=== PATIENT | female | born 1935 | race Caucasian/White ===

== ENCOUNTER 2016-08-17 14:17 | Emergency (ER) | payer OTHER, MEDICARE ==
[~2016-08-17] VITALS: Ht 147.3 cm; Wt 88.5 kg
[~2016-08-17 14:17] MED LIST: ACCUNEB SO1.25 MG/1; ACETAMINOPHEN325 M1 PO; ADVIL200 M2 PO; ALEVE220 MG PO; AMBIEN 10 MG TA10 MG PO; AMBIEN 5 MG TABL5 M1 PO; AUGMENTIN 875875 M1 PO; AUGMENTIN 875875 MG PO; AZITHROMYCIN 2250 MG PO; BACTROBAN NASAL1 GM NASAL; BENADRYL; BENTYL 10 MG CA10 M1 PO; CALCIUM PO; CEFTIN 250 MG250 MG PO; CEFTIN500 MG PO; CENTRUM SILVER1 EAC1 PO; CEPHALEXIN 500500 M2 PO; CIPRO250 M1 PO; CIPRO500 MG PO; CIPROFLOXACIN250 M2 PO; CIPROFLOXACIN500 M1 PO; COLACE100 MG PO; COMPAZINE10 MG PO; CYPROHEPTADINE 44 MG PO; DARVOCET-N 1001 EACH PO; ENOXAPARIN40 MG/0.1 INJECTION; ENOXAPARIN40 MG/0.1 SUBQ; ESTRACE0.5 MG PO; ESTRODIL PO; FERRO-TIME325 MG PO; FLAGYL500 MG PO; FUROSEMIDE 20 M20 MG PO; HYDROCHLOROTHIA25 M2 PO; HYDROCODONE-AP1 EAC6 PO; HYDROXYCHLOROQ200 M1 PO; KCL PO; KEFLEX500 MG PO; KEFLEX750 MG PO; LOMOTIL TABLET1 EACH PO; LOPERAMIDE 2 MG2 M1 PO; LOVASTATIN PO; LYRICA PO; LYRICA200 MG PO; MACROBID 100 M100 M1 PO; MULTIVITAMINS1 EAC7 PO; NAPROSYN500 MG PO; NITROFURANTOIN100 MG PO; NORCO 5-325 TA1 EACH; NORCO 5-325 TA1 EACH PO; NYSTATIN 1100000 U/M PO; NYSTATIN15 GM TOP; OMEPRAZOLE20 MG PO; PERCOCET 5-3251 EACH PO; PHENAZOPYRIDIN200 M2 PO; PHENERGAN 25 MG25 M1 PO; POTASSIUM CHLO10 ME1 PO; PREMARIN0.45 MG PO; PREVALITE PACKE1 PKT PO; PRILOSEC 20 MG20 MG PO; PRILOSEC40 MG PO; PROBIOTIC DIGE1 EACH PO; PROLOPRIM100 MG PO; PROMS25 WY RECTAL; PROTONIX40 M2 PO; PYRIDIUM200 MG PO; RAPAFLO4 MG PO; REGLAN 10 MG TA10 MG PO; REMERON15 MG PO; ROBAXIN 750 MG750 M1 PO; ROXICODONE5 MG PO; SKELAXIN 800 M800 M1 PO; TAGAMENT; TRAMADOL 50 MG50 MG PO; TYLENOL325 MG PO; VANCOMYCIN100 MG/ML PO; VENTOLIN HFA 1818 GM INH; VOLTAREN GEL 1100 G1 TOP; VOLTAREN GEL 1100 G2 TOP; XANAX 0.25 MG0.25 MG; XANAX 0.25 MG0.25 MG PO; XANAX 0.5 MG0.5 M1 PO; XANAX 0.5 MG0.5 MG PO; XIFAXAN550 M1 PO; ZOCOR40 MG PO; ZOFRAN ODT4 MG PO; ZOFRAN4 MG PO; ZOLOFT 50 MG TA50 M1 PO; ZOLOFT100 MG PO; [UNRECOGNIZED DRUG - CODE] PO; [UNRECOGNIZED DRUG - OTHER] PO
[2016-08-17 14:43] LABS: HEMATOCRIT 38.4 % (37.0-47.0); HEMOGLOBIN 12.9 gm/dL (12.0-15.0); MCH 29.6 pg (26.0-34.0); MCHC 33.4 g/dL (28.0-37.0); MCV 88.6 fL (80.0-100.0); PLATELET COUNT 188 thou/uL (150-400); RBC 4.34 mil/uL (4.20-5.00); RDW 15.8 % (10.5-14.5); WBC 3.4 thou/uL (4.0-11.0)
[2016-08-17 14:47] LABS: MANUAL DIFF YES
[2016-08-17 14:53] LABS: ANION GAP 14 mmol/L (7-16); BUN 12 mg/dL (7-18); CALCIUM 8.7 mg/dL (8.5-10.1); CHLORIDE 100 mmol/L (98-107); CO2 19 mmol/L (21-32); CREATININE 0.7 mg/dL (0.6-1.0); GLUCOSE 103 mg/dL (74-106); POTASSIUM 4.1 mmol/L (3.5-5.1); SODIUM 133 mmol/L (136-145)
[2016-08-17 15:00] LABS: ALBUMIN 3.6 g/dL (3.4-5.0); ALKALINE PHOSPHATASE 120 U/L (46-116); DIRECT BILIRUBIN < 0.1 mg/dL (<0.1-0.3); SGOT 32 U/L (15-37); SGPT 23 U/L (30-65); TOTAL BILIRUBIN 0.3 mg/dL (<0.1-1.0); TOTAL PROTEIN 7.4 g/dL (6.4-8.2)
[2016-08-17 15:07] LABS: ABSOLUTE NEUTROPHILS 1.9 thou/uL (1.4-8.2); TOTAL CELL COUNT 100
[2016-08-17 15:46] LABS: URINE BILIRUBIN ND (Negative); URINE BLOOD ND (Negative); URINE COLOR ORANGE; URINE GLUCOSE-RANDOM* ND (Negative); URINE KETONES ND (Negative); URINE NITRITE ND (Negative); URINE PROTEIN (DIPSTICK) ND (Negative); URINE SPECIFIC GRAVITY ND (1.003-1.035); URINE UROBILINOGEN ND E.U./dl (0.2-1.0)
[2016-08-17 15:54] LABS: SQUAMOUS 4-10 Moderate /LPF (0-3); WBC CLUMPS Rare (None Seen)
[2016-08-17 15:55] LABS: URINE RBC 0-2 Rare /HPF (0-2); URINE WBC >25 Many /HPF (0-5)
[2016-08-17 15:56] LABS: CASTS None Seen /LPF (None Seen); CRYSTALS None Seen /LPF (None Seen)
[2016-08-17] MEDS ORDERED: ZOFRAN ODT4 MG PO (16:07)
[2016-08-17] MEDS ORDERED: MACROBID 100 M100 M1 PO (16:07)
[2016-08-17 17:05] VITALS: BP 144/62
== END 2016-08-17 17:14 | disposition home or self-care (01) ==
LOC: ER 14:17
PROVIDERS: Emergency Medicine
DX: N39.0 Urinary tract infection, site not specified (principal); R11.2 Nausea with vomiting, unspecified; R19.7 Diarrhea, unspecified; M06.9 Rheumatoid arthritis, unspecified; F32.9 Major depressive disorder, single episode, unspecified; M79.7 Fibromyalgia; G89.29 Other chronic pain; M54.9 Dorsalgia, unspecified; G62.9 Polyneuropathy, unspecified; G72.81 Critical illness myopathy; Z90.89 Acquired absence of other organs; Z90.49 Acquired absence of other specified parts of digestive tract; Z90.710 Acquired absence of both cervix and uterus; Z86.2 Personal history of diseases of the blood and blood-forming organs and certain disorders involving the immune mechanism; Z86.14 Personal history of Methicillin resistant Staphylococcus aureus infection; Z88.6 Allergy status to analgesic agent; Z88.5 Allergy status to narcotic agent; Z88.2 Allergy status to sulfonamides; Z91.018 Allergy to other foods

== ENCOUNTER 2016-09-30 13:37 | Inpatient (IN) | payer OTHER, MEDICARE ==
[~2016-09-30] VITALS: Ht 147.3 cm; Wt 74.8 kg
--- NOTE | ~2016-09-30 | EKG ---
[address] [address] ELECTROCARDIOGRAM REPORT Name: DALE DAO Room #: 439-P [facility]..#: [id number] Admission: 09/30/16 Attend Phys: Kai Vick DO Discharge: Date of : 35 Report #: [id number] THIS REPORT FOR: //name// [facility] ED Test Date: 2016-09-30 Test Time: 16:05:30 Pat Name: DALE DAO Department: Room: [facility] Gender: F Vb Developer: conor : 1935 Requested By: Earl Abraham Order Number: [id number] MD: Jon Summers Measurements Intervals [place] Rate: 77 P: -25 AK: 264 QRS: -62 QRSD: 134 T: 22 QT: 426 QTc: 483 Interpretive Statements Sinus rhythm Prolonged AK interval Consider left atrial enlargement Right bundle branch block Left ventricular hypertrophy Inferior infarct, old Compared to ECG 05/20/2016 09:46:17 First degree AV block now present Left ventricular hypertrophy now present Supraventricular tachycardia no longer present Myocardial infarct finding still present Electronically Signed On 09-30-2016 22:06:39 CDT by Jon Summers [email or web address] <ELECTRONICALLY SIGNED> By: Jon Summers MD 09/30/16 2206 04 04 Jon Summers MD /EPI
[~2016-09-30 13:37] MED LIST changes: +ZOFRAN ODT8 MG PO
[2016-09-30 14:13] VITALS: BP 145/79
[2016-09-30 16:33] LABS: ABSOLUTE NEUTROPHILS 4.5 thou/uL (1.4-8.2); BASOPHILS 0.3 % (0.0-2.0); EOSINOPHILS 1.7 % (0.0-3.0); HEMATOCRIT 44.1 % (37.0-47.0); HEMOGLOBIN 14.9 gm/dL (12.0-15.0); LYMPHOCYTES 20.8 % (24.0-44.0); MCH 30.3 pg (26.0-34.0); MCHC 33.7 g/dL (28.0-37.0); MONOCYTES 11.4 % (1.0-8.0); PLATELET COUNT 314 thou/uL (150-400); POLYS 65.8 % (36.0-66.0); RDW 15.7 % (10.5-14.5); WBC 6.8 thou/uL (4.0-11.0)
[2016-09-30 16:38] LABS: MANUAL DIFF NO
[2016-09-30 16:43] LABS: CALCIUM 10.3 mg/dL (8.5-10.1); CREATININE 0.9 mg/dL (0.6-1.0)
[2016-09-30 16:48] LABS: ALBUMIN 4.6 g/dL (3.4-5.0); TOTAL BILIRUBIN 0.5 mg/dL (<0.1-1.0); TOTAL PROTEIN 8.9 g/dL (6.4-8.2); TROPONIN-I < 0.04 ng/mL (<0.04-0.07)
[2016-09-30 16:53] LABS: ABG SAMPLE TYPE ARTERIAL; BE(vivo) -1.3 mmol/L (-2 to +3); HCO3 21.1 mmol/L (22.0-26.0); LACTATE 1.57 mmol/L (0.5-2.0); O2(CT) 17.8 mL/dL (15.0-23.0); O2Hb 89.3 % (92.0-98.0); PCO2 29.3 mmHg (35.0-45.0); PO2 59.6 mmHg (80.0-100.0); pH 7.475 (7.360-7.450); sO2 92.8 % (92.0-98.0)
[2016-09-30 16:54] LABS: ABG COMMENT NO COMPLICATIONS.; STICK SITE R.RADIAL
[2016-09-30 16:57] LABS: URINE BILIRUBIN NEGATIVE (Negative); URINE BLOOD NEGATIVE (Negative); URINE COLOR YELLOW; URINE GLUCOSE-RANDOM* TRACE (Negative); URINE KETONES NEGATIVE (Negative); URINE LEUKOCYTES-REFLEX 2+ (Negative); URINE PROTEIN (DIPSTICK) TRACE (Negative); URINE SPECIFIC GRAVITY <= 1.005 (1.003-1.035)
[2016-09-30 17:02] LABS: CASTS None Seen /LPF (None Seen); CRYSTALS None Seen /LPF (None Seen); SQUAMOUS 0-3 Few /LPF (0-3); URINE RBC 0-2 Rare /HPF (0-2); URINE WBC-REFLEX 6-15 Few /HPF (0-5)
[2016-09-30 18:53] VITALS: BP 132/79
[2016-09-30 19:00] VITALS: BP 146/81
[2016-10-01 00:05] VITALS: BP 182/81; BP 1821/81
[2016-10-01 05:14] VITALS: BP 142/57
[2016-10-01 05:35] LABS: HEMATOCRIT 35.2 % (37.0-47.0); MCH 30.7 pg (26.0-34.0); MCHC 34.6 g/dL (28.0-37.0); MCV 88.6 fL (80.0-100.0); RBC 3.97 mil/uL (4.20-5.00); RDW 15.6 % (10.5-14.5)
[2016-10-01 05:48] LABS: HEMOGLOBIN 12.2 gm/dL (12.0-15.0); PLATELET COUNT 233 thou/uL (150-400)
[2016-10-01 05:50] LABS: MANUAL DIFF YES
[2016-10-01 05:52] LABS: CALCIUM 8.5 mg/dL (8.5-10.1); CREATININE 0.8 mg/dL (0.6-1.0); MAGNESIUM 1.7 mg/dL (1.8-2.4)
[2016-10-01 05:56] LABS: POTASSIUM 3.6 mmol/L (3.5-5.1)
[2016-10-01 07:58] LABS: ABSOLUTE NEUTROPHILS 2.5 thou/uL (1.4-8.2); TOTAL CELL COUNT 100
[2016-10-01 07:59] LABS: ANISOCYTOSIS 1+; OVALOCYTES FEW
[2016-10-01 08:14] VITALS: BP 129/68
[2016-10-01 16:25] VITALS: BP 151/57
[2016-10-01 20:15] VITALS: BP 141/76
[2016-10-02 04:56] VITALS: BP 140/60
[2016-10-02 08:11] VITALS: BP 153/65
[2016-10-02 17:11] VITALS: BP 160/56
[2016-10-02 19:45] VITALS: BP 143/56
[2016-10-03 05:35] VITALS: BP 155/64
[2016-10-03 08:07] VITALS: BP 144/54
[2016-10-03] MEDS ORDERED: KEFLEX500 MG PO (09:15)
[2016-10-03 10:30] VITALS: BP 144/54
[2016-10-03] MEDS ORDERED: MACROBID 100 M100 M2 PO (14:59)
== END 2016-10-03 16:37 | disposition home or self-care (01) | DRG 871 ==
LOC: ER 13:37 → EROBS 17:32 → 4S 18:39
PROVIDERS: Emergency Medicine; Internal Medicine Geriatric Medicine
DX: A41.9 Sepsis, unspecified organism (principal); G93.41 Metabolic encephalopathy; N39.0 Urinary tract infection, site not specified; R10.9 Unspecified abdominal pain; M19.90 Unspecified osteoarthritis, unspecified site; G62.9 Polyneuropathy, unspecified; G89.29 Other chronic pain; M54.9 Dorsalgia, unspecified; E86.0 Dehydration; M06.9 Rheumatoid arthritis, unspecified; D64.9 Anemia, unspecified; Z87.01 Personal history of pneumonia (recurrent); F32.9 Major depressive disorder, single episode, unspecified; Z90.49 Acquired absence of other specified parts of digestive tract; Z90.710 Acquired absence of both cervix and uterus; Z88.6 Allergy status to analgesic agent; Z88.2 Allergy status to sulfonamides; Z88.8 Allergy status to other drugs, medicaments and biological substances; Z79.899 Other long term (current) drug therapy
CPT/HCPCS: 10102

== ENCOUNTER 2016-10-14 17:54 | Emergency (ER) | payer OTHER, MEDICARE ==
[~2016-10-14] VITALS: Ht 147.3 cm; Wt 86.2 kg
[~2016-10-14 17:54] MED LIST changes: +MACROBID 100 M100 M2 PO
[2016-10-14 18:39] LABS: ABSOLUTE NEUTROPHILS 3.3 thou/uL (1.4-8.2); BASOPHILS 0.5 % (0.0-2.0); EOSINOPHILS 4.5 % (0.0-3.0); HEMATOCRIT 37.7 % (37.0-47.0); HEMOGLOBIN 12.6 gm/dL (12.0-15.0); LYMPHOCYTES 25.7 % (24.0-44.0); MCH 29.9 pg (26.0-34.0); MCHC 33.5 g/dL (28.0-37.0); MCV 89.2 fL (80.0-100.0); MONOCYTES 10.4 % (1.0-8.0); PLATELET COUNT 178 thou/uL (150-400); POLYS 58.9 % (36.0-66.0); RBC 4.22 mil/uL (4.20-5.00); RDW 15.3 % (10.5-14.5); WBC 5.6 thou/uL (4.0-11.0)
[2016-10-14 18:40] LABS: MANUAL DIFF NO
[2016-10-14 18:48] LABS: ANION GAP 8 mmol/L (7-16); BUN 9 mg/dL (7-18); CALCIUM 8.9 mg/dL (8.5-10.1); CHLORIDE 104 mmol/L (98-107); CO2 24 mmol/L (21-32); CREATININE 0.8 mg/dL (0.6-1.0); GLUCOSE 113 mg/dL (74-106); POTASSIUM 3.7 mmol/L (3.5-5.1); SODIUM 136 mmol/L (136-145)
[2016-10-14 18:52] LABS: ALBUMIN 3.5 g/dL (3.4-5.0); ALKALINE PHOSPHATASE 128 U/L (46-116); DIRECT BILIRUBIN < 0.1 mg/dL (<0.1-0.3); SGOT 17 U/L (15-37); SGPT 12 U/L (30-65); TOTAL BILIRUBIN 0.3 mg/dL (<0.1-1.0)
[2016-10-14 19:04] LABS: URINE BILIRUBIN NEGATIVE (Negative); URINE BLOOD NEGATIVE (Negative); URINE COLOR YELLOW; URINE GLUCOSE-RANDOM* NEGATIVE (Negative); URINE KETONES NEGATIVE (Negative); URINE NITRITE POSITIVE (Negative); URINE PROTEIN (DIPSTICK) NEGATIVE (Negative); URINE SPECIFIC GRAVITY 1.015 (1.003-1.035)
[2016-10-14] MEDS ORDERED: MACROBID 100 M100 M1 PO (19:12)
[2016-10-14] MEDS ORDERED: ZOFRAN ODT4 MG PO (19:12)
[2016-10-14 19:13] LABS: BACTERIA 1-9 Few /HPF (None Seen); CASTS None Seen /LPF (None Seen); CRYSTALS None Seen /LPF (None Seen); SQUAMOUS 0-3 Few /LPF (0-3); URINE RBC None Seen /HPF (0-2); URINE WBC 0-5 Rare /HPF (0-5)
[2016-10-14 19:36] VITALS: BP 129/72
== END 2016-10-14 19:37 | disposition home or self-care (01) ==
LOC: ER 17:54
PROVIDERS: Emergency Medicine
DX: N39.0 Urinary tract infection, site not specified (principal); M06.9 Rheumatoid arthritis, unspecified; F32.9 Major depressive disorder, single episode, unspecified; M79.7 Fibromyalgia; G89.29 Other chronic pain; M54.9 Dorsalgia, unspecified; G62.9 Polyneuropathy, unspecified; Z88.6 Allergy status to analgesic agent; Z90.89 Acquired absence of other organs; Z90.49 Acquired absence of other specified parts of digestive tract; Z90.710 Acquired absence of both cervix and uterus; Z86.2 Personal history of diseases of the blood and blood-forming organs and certain disorders involving the immune mechanism; Z86.14 Personal history of Methicillin resistant Staphylococcus aureus infection; Z91.018 Allergy to other foods; Z88.5 Allergy status to narcotic agent; Z88.2 Allergy status to sulfonamides

== ENCOUNTER 2017-02-01 13:11 | Inpatient (IN) | payer OTHER, MEDICARE ==
[~2017-02-01] VITALS: Ht 147.3 cm; Wt 79.6 kg
--- NOTE | ~2017-02-01 | HC ---
[facility] [place] [address] CONSULTATION Name: DALE DAO Room #: 406-P ADM IN M.R.#: [id number] Admission: 02/01/17 Attend Phys: Marcial Vazquez MD Discharge: Date of : 35 Report #: [id number] THIS REPORT FOR: //name// CC: FAM unknown Marcial Vazquez REASON FOR CONSULTATION: Abdominal pain, nausea and vomiting. BACKGROUND: The patient is an 81-year-old white female admitted through the Emergency Room with abdominal pain, nausea, vomiting and diarrhea. She has had similar presentation requiring admission in the past and reports that she was last hospitalized earlier this year. She was unable to account for abrupt change in her symptoms Yoel night with nausea and vomiting and diarrhea with diffuse abdominal discomfort and pain involving her entire abdomen. She did not recognize any recent change in her diet or medications. She has had similar presentations in the past. No evidence of blood has been in the stool. She reported no fevers or chills. She was able to advance her diet and eat this morning with no increase in symptoms. She does have a history of frequent urinary tract infections and has required antibiotics. She does have a previous history of C. difficile diarrhea. She has undergone previous EGD and colonoscopy, but is not able to well recount timing of her previous procedures. She has undergone previous upper endoscopy with dilation in the past. She has occasional very mild dysphagia at the level of the sternal notch, but not to the degree that it was at the time of upper endoscopy. Previous records at least indicate that she had undergone colonoscopy in 2009 with no significant findings at that time. Whether she had a more recent procedure is not completely clear. She had undergone previous EGD with dilation December 2014 with the finding of moderate gastritis, small hiatal hernia, mild Schatzki ring and a duodenal diverticulum. Biopsies were negative for celiac sprue and Helicobacter pylori (above information is obtained from previous GI consult 10/01/2016). PAST MEDICAL HISTORY: She does have a history of chronic arthritis attributed to both rheumatoid arthritis and degenerative joint disease, peripheral neuropathy, fibromyalgia, chronic back pain, iron deficiency, pneumonia, urinary tract infections. PREVIOUS SURGERIES: Include tonsillectomy, appendectomy, hysterectomy, back surgery in 2012. HOME MEDICATIONS: [place] p.r.n., dicyclomine 10 mg p.o. q.i.d., Zofran p.r.n., nitrofurantoin 100 mg p.o. b.i.d., [place] 1 tablet p.o. q.6 hours, Xanax 0.5 mg p.r.n., omeprazole 20 mg p.o. b.i.d., mirtazapine 15 mg 2 pills at night, Voltaren gel p.r.n., cyproheptadine 4 mg p.o. t.i.d. p.r.n. nausea, Lyrica 200 mg at bedtime, simvastatin 40 mg per day, potassium chloride 10 mEq per day, [address] [address] CONSULTATION Name: DALE DAO Room #: 406-P [facility] IN [facility].#: [id number] Admission: 02/01/17 Attend Phys: Marcial Vazquez MD Discharge: Date of : 35 Report #: [id number] sertraline 50 mg per day. ALLERGIES: ASPIRIN, CHOCOLATE, CODEINE, HONEY, SULFA, TUNA, FOOD SPICES. SOCIAL HISTORY: She does not smoke cigarettes nor drink alcohol. FAMILY HISTORY: She has no known family history of colon cancer. REVIEW OF SYSTEMS: She had denied any fevers or chills. She had no significant shortness of breath, wheezing, coughing or chest pain. GI as per HPI. She has undergone recent treatment for urinary tract infection. She had no significant myalgias. She does have chronic arthritis. PHYSICAL EXAMINATION: GENERAL: She appeared alert and in no acute distress at rest, but overweight. VITAL SIGNS: Afebrile, blood pressure 146/64, pulse 69 at 8 o'clock this morning. HEENT: No scleral icterus. NECK: Supple, without lymphadenopathy or thyromegaly. HEART: Rate and rhythm regular without murmur. LUNGS: Clear to auscultation. ABDOMEN: Soft, moderately obese with no obvious hepatosplenomegaly or palpable mass. She had mild tenderness to palpation in the epigastrium and medial right upper quadrant. LABORATORY STUDIES: On February 01, white blood cell count 6700, hemoglobin 13.7, platelet count 219,000. CBC February 03 includes white blood cell count 4000, hemoglobin 12.1, platelet count 183,000. Initial complete metabolic profile February 01 include sodium 131, potassium 4.5, BUN 9, creatinine 1.0. AST is minimally elevated at 41, ALT low at 24, alkaline phosphatase 132. Lipase was not elevated. CT abdomen and pelvis February 01 revealed the presence of diverticulosis in the sigmoid colon with some wall thickening in the left colon, nonspecific. She had mild ectasia with calcification of the infrarenal abdominal aorta. She had marked anterolisthesis at L4-L5 with surgical fusion from L4 through the sacrum and the presence of hepatic cysts. IMPRESSION: 1. Recurrent lower abdominal pain, nausea and vomiting, acute onset, resolved similar to previous presentation. She has no abdominal pain or tenderness at time of examination this morning. 2. Mild dysphagia. 3. Fibromyalgia. 4. Chronic anxiety. [facility] [address] [place] [address] CONSULTATION Name: DALE DAO Room #: 406-P [facility] IN M.R.#: [id number] Admission: 02/01/17 Attend Phys: Marcial Vazquez MD Discharge: Date of : 35 Report #: [id number] RECOMMENDATIONS: 1. With resolution of symptoms, discharge may be considered later today as she has been able to tolerate her diet. 2. No clear indications for treatment with antibiotics are apparent at this time. 3. She does need to follow up with Dr. wSain as an outpatient to determine if further evaluation may be required. By: [id number] Andrea Burden MD /nt
--- NOTE | ~2017-02-01 | EKG ---
[address] [address] ELECTROCARDIOGRAM REPORT Name: DALE DAO Room #: 406- ADM IN M.R.#: [id number] Admission: 02/01/17 Attend Phys: Marcial Vazquez MD Discharge: Date of : 35 Report #: [id number] THIS REPORT FOR: //name// [facility] ED Test Date: 2017-02-01 Test Time: 13:25:31 Pat Name: DALE DAO Department: Room: [facility] Gender: F Promotions Producer: [email or web address] : 1935 Requested By: Shi Bocanegra Order Number: [id number] MD: Jon Summers Measurements Intervals [place] Rate: 87 P: 8 AR: 261 QRS: -60 QRSD: 131 T: 17 QT: 411 QTc: 495 Interpretive Statements Sinus rhythm Prolonged AR interval Right bundle branch block Inferior infarct, old Compared to ECG 09/30/2016 16:05:30 Left ventricular hypertrophy no longer present Myocardial infarct finding still present Electronically Signed On 02-01-2017 21:14:48 CDT by Jon Summers [email or web address] <ELECTRONICALLY SIGNED> By: Jon Summers MD 02/01/17 2114 1325 1325 Jon Summers MD /EPI
[2017-02-01 13:16] VITALS: BP 148/74
[2017-02-01 14:39] LABS: HEMATOCRIT 40.2 % (37.0-47.0); HEMOGLOBIN 13.7 gm/dL (12.0-15.0); MCH 30.5 pg (26.0-34.0); MCHC 34.2 g/dL (28.0-37.0); MCV 89.2 fL (80.0-100.0); RDW 16.1 % (10.5-14.5); WBC 6.7 thou/uL (4.0-11.0)
[2017-02-01 14:49] LABS: MANUAL DIFF YES
[2017-02-01 14:51] LABS: ANION GAP 9 mmol/L (7-16); BUN 9 mg/dL (7-18); CALCIUM 9.7 mg/dL (8.5-10.1); CHLORIDE 97 mmol/L (98-107); CO2 25 mmol/L (21-32); GLUCOSE 111 mg/dL (74-106); POTASSIUM 4.5 mmol/L (3.5-5.1); SODIUM 131 mmol/L (136-145)
[2017-02-01 15:09] LABS: ALBUMIN 4.2 g/dL (3.4-5.0); ALKALINE PHOSPHATASE 132 U/L (46-116); DIRECT BILIRUBIN < 0.1 mg/dL (<0.1-0.3); SGOT 41 U/L (15-37); SGPT 24 U/L (30-65); TOTAL BILIRUBIN 0.5 mg/dL (<0.1-1.0); TOTAL PROTEIN 7.6 g/dL (6.4-8.2); TROPONIN-I < 0.04 ng/mL (<0.04-0.07)
[2017-02-01 15:12] LABS: ABSOLUTE NEUTROPHILS 4.6 thou/uL (1.4-8.2); LARGE PLATELETS SEVERAL; PLATELET COUNT 219 thou/uL (150-400); TOTAL CELL COUNT 100
[2017-02-01 17:29] LABS: URINE BILIRUBIN NEGATIVE (Negative); URINE BLOOD NEGATIVE (Negative); URINE COLOR YELLOW; URINE GLUCOSE-RANDOM* NEGATIVE (Negative); URINE KETONES TRACE (Negative); URINE NITRITE NEGATIVE (Negative); URINE PROTEIN (DIPSTICK) NEGATIVE (Negative); URINE SPECIFIC GRAVITY <= 1.005 (1.003-1.035); URINE UROBILINOGEN 0.2 E.U./dl (0.2-1.0)
[2017-02-01 18:52] VITALS: BP 150/82
[2017-02-01 19:42] VITALS: BP 150/69
[2017-02-01 20:53] VITALS: BP 144/70
[2017-02-01 23:35] VITALS: BP 97/46
[2017-02-02 04:54] VITALS: BP 116/44
[2017-02-02 07:29] LABS: HEMATOCRIT 37.2 % (37.0-47.0); HEMOGLOBIN 12.6 gm/dL (12.0-15.0); MCH 30.3 pg (26.0-34.0); MCHC 33.8 g/dL (28.0-37.0); MCV 89.8 fL (80.0-100.0); RBC 4.14 mil/uL (4.20-5.00); RDW 16.2 % (10.5-14.5); WBC 5.2 thou/uL (4.0-11.0)
[2017-02-02 07:32] LABS: ALBUMIN 3.4 g/dL (3.4-5.0); CALCIUM 8.8 mg/dL (8.5-10.1); POTASSIUM 3.2 mmol/L (3.5-5.1); TOTAL BILIRUBIN 0.4 mg/dL (<0.1-1.0); TOTAL PROTEIN 6.4 g/dL (6.4-8.2)
[2017-02-02 09:22] VITALS: BP 123/52
[2017-02-02 18:25] VITALS: BP 106/67
[2017-02-02 20:00] VITALS: BP 132/97
[2017-02-03 04:00] VITALS: BP 140/81
[2017-02-03 07:25] LABS: HEMATOCRIT 36.1 % (37.0-47.0); HEMOGLOBIN 12.1 gm/dL (12.0-15.0); MCH 30.4 pg (26.0-34.0); MCHC 33.5 g/dL (28.0-37.0); MCV 90.6 fL (80.0-100.0); RBC 3.99 mil/uL (4.20-5.00); RDW 16.5 % (10.5-14.5)
[2017-02-03 07:38] LABS: ALBUMIN 3.5 g/dL (3.4-5.0); CALCIUM 8.5 mg/dL (8.5-10.1); CREATININE 0.9 mg/dL (0.6-1.0); POTASSIUM 3.8 mmol/L (3.5-5.1); TOTAL BILIRUBIN 0.3 mg/dL (<0.1-1.0); TOTAL PROTEIN 6.2 g/dL (6.4-8.2)
[2017-02-03 08:00] VITALS: BP 146/64
[2017-02-03 16:00] VITALS: BP 129/65
[2017-02-03 19:25] VITALS: BP 150/59
[2017-02-04 08:00] VITALS: BP 130/88
[2017-02-04 09:28] VITALS: BP 130/88
== END 2017-02-04 11:05 | disposition home or self-care (01) | DRG 871 ==
LOC: ER 13:11 → EROBS 17:11 → 4N 17:11 → ENTRNSPT 02-04 10:58 → EDTRNSPTSTS 02-04 11:05 → 4N 02-04 11:05
PROVIDERS: Emergency Medicine; Hospitalist; Internal Medicine
DX: A41.9 Sepsis, unspecified organism (principal); J96.00 Acute respiratory failure, unspecified whether with hypoxia or hypercapnia; E87.1 Hypo-osmolality and hyponatremia; K52.9 Noninfective gastroenteritis and colitis, unspecified; F32.9 Major depressive disorder, single episode, unspecified; Z66 Do not resuscitate; G89.29 Other chronic pain; M54.9 Dorsalgia, unspecified; K58.9 Irritable bowel syndrome, unspecified; M06.9 Rheumatoid arthritis, unspecified; R13.10 Dysphagia, unspecified; M79.7 Fibromyalgia; G62.9 Polyneuropathy, unspecified; F41.1 Generalized anxiety disorder; E87.6 Hypokalemia; E78.5 Hyperlipidemia, unspecified; E03.9 Hypothyroidism, unspecified; Z87.440 Personal history of urinary (tract) infections; Z87.01 Personal history of pneumonia (recurrent); Z91.018 Allergy to other foods; Z88.8 Allergy status to other drugs, medicaments and biological substances; Z88.2 Allergy status to sulfonamides; Z88.6 Allergy status to analgesic agent; Z79.899 Other long term (current) drug therapy; Z86.14 Personal history of Methicillin resistant Staphylococcus aureus infection; Z90.710 Acquired absence of both cervix and uterus; Z90.49 Acquired absence of other specified parts of digestive tract
CPT/HCPCS: 10091; 27001

== ENCOUNTER 2017-04-12 18:26 | Inpatient (IN) | payer OTHER, MEDICARE ==
[~2017-04-12] VITALS: Ht 147.3 cm; Wt 77.2 kg
--- NOTE | ~2017-04-12 | HC ---
[facility] [place] [address] CONSULTATION Name: DALE DAO Room #: 420-P ADM IN M.R.#: [id number] Admission: 04/12/17 Attend Phys: Gama Horn Discharge: Date of : 35 Report #: [id number] THIS REPORT FOR: //name// CC: ALIX physician/PCP Gama Swain MD DATE OF SERVICE: 04/13/2017 HISTORY OF PRESENT ILLNESS: The patient is an 81-year-old female who began having abdominal pain over the last 3-4 days. She did have an episode of nausea and vomiting. She did have a fever at home. She also was concerned for having black tarry type stools. She does have a previous history of peptic ulcer disease, but this was many years ago. She denies any NSAID use on a regular basis. She is taking omeprazole on a daily basis at home. She denies any chest pain or shortness of breath currently. She denies any dysphagia or odynophagia. She apparently had colonoscopy a year ago. Her CT scan here on admission is consistent with diverticulitis. She has been started on IV antibiotics. Her pain is primarily in the left side, but does extend over into the periumbilical region. PAST MEDICAL HISTORY: Previous history of diverticulitis, irritable bowel syndrome, previous UTI, depression, rheumatoid arthritis, fibromyalgia, previous appendectomy, hysterectomy, chronic back pain, anemia, previous history of C. diff. ALLERGIES: ASPIRIN, DARK CHOCOLATE, HONEY, CODEINE, SULFA, COUMADIN. MEDICATIONS ON ADMISSION: Irving, Bentyl, Zofran, Xanax, omeprazole 20 mg p.o. b.i.d., Remeron, Voltaren, Lyrica, potassium chloride, Zoloft. REVIEW OF SYSTEMS: As per HPI. FAMILY HISTORY: Negative for colon cancer. SOCIAL HISTORY: She denies any tobacco or alcohol use. PHYSICAL EXAMINATION: VITAL SIGNS: Temperature is 98.5, pulse 73, blood pressure 124/52, respiratory rate is 18. GENERAL: She is alert and oriented x 3 in no acute distress. HEENT: Sclerae nonicteric. Oropharynx clear. NECK: Supple, without lymphadenopathy. CARDIOVASCULAR: Regular rate. CHEST: Clear to auscultation anteriorly bilaterally. [facility] [address] [place] [address] CONSULTATION Name: DALE DAO Room #: 420-P [facility] IN M.R.#: [id number] Admission: 04/12/17 Attend Phys: Gama Horn Discharge: Date of : 35 Report #: [id number] ABDOMEN: Soft, obese. She is tender to palpation diffusely in the mid epigastric, periumbilical left upper quadrant, left lower quadrant area. EXTREMITIES: No cyanosis, clubbing or edema. LABORATORY DATA: Sodium 137, potassium 3.5, chloride 103, bicarbonate 22, BUN 8, creatinine 0.7, glucose 90. AST is 13, lipase 77. Total bilirubin 0.3, alkaline phosphatase 120, ALT is 15, total protein 7.0, albumin 3.5. WBC is 6.8, hemoglobin 10.9, it was 12.7 on admission, platelet count is 219. CT scan of the abdomen and pelvis performed on admission. CT findings consistent with acute diverticulitis of the mid/proximal sigmoid colon without evidence of inflammatory mass, abscess or any pneumoperitoneum. ASSESSMENT AND PLAN: Diverticulitis. CT showing changes consistent with diverticulitis in the sigmoid colon. Agree with IV antibiotics. The patient has been started on Flagyl and Cipro. She reports dark stools. This may be secondary to diverticulitis. She does have a remote history of peptic ulcer disease. We will discontinue Pepcid and start PPI therapy as the patient has been on b.i.d. PPI therapy at home. She has been off NSAIDs. I suspect that makes this less likely as a peptic ulcer disease. We will continue to monitor her hemoglobin as she did have a drop in her hemoglobin since admission. The patient has also had a colonoscopy reportedly within the last year. Thank you for allowing me to participate in her care. <ELECTRONICALLY SIGNED> By: Hia Castro MD 04/14/17 1414 1218 1607 Hai Castro MD /nt
--- NOTE | ~2017-04-12 | HC ---
[facility] [place] [address] CONSULTATION Name: DALE DAO Room #: 420-P ADM IN M.R.#: [id number] Admission: 04/12/17 Attend Phys: Todd Johnson MD Discharge: Date of : 35 Report #: [id number] THIS REPORT FOR: //name// CC: ALIX physician/PCP Gama Horn REASON FOR CONSULTATION: I was asked to evaluate concerning diverticulitis and ESBL-producing E. coli urinary tract infection. HISTORY OF PRESENT ILLNESS: The patient is an 81-year-old who presents with a 4-day history of increased abdominal pain associated with nausea and vomiting. She did have some black tarry stools, which has subsided. On initial evaluation, she had evidence of urinary tract infection with pyuria, bacteriuria and urine culture now showing ESBL-producing E. coli. CT scan showed evidence of active diverticulitis without abscess. ALLERGIES: ASPIRIN, CHOCOLATE, HONEY, CODEINE, SULFA, COUMADIN. MEDICATIONS: As noted on MAR, including ciprofloxacin and metronidazole. PAST MEDICAL HISTORY: Diverticulitis, irritable bowel syndrome, urinary tract infections, depression, rheumatoid arthritis, fibromyalgia, appendectomy, hysterectomy, chronic back pain, anemia, C. difficile colitis. FAMILY HISTORY: Negative for colon cancer. SOCIAL HISTORY: Nonsmoker, no significant alcohol intake. REVIEW OF SYSTEMS: Denies any cough, sputum, dysuria, back or flank pain. PHYSICAL EXAMINATION: VITAL SIGNS: Afebrile and hemodynamically stable. GENERAL: She is alert and cooperative, sitting up in her chair, in no acute distress. HEENT: Unremarkable. NECK: Supple. LUNGS: Clear. HEART: Regular, without murmur. ABDOMEN: Tender diffusely. No rebound or guarding. No CVA tenderness. LABORATORY STUDIES: Sodium 140, potassium 3.9, bicarbonate 23, creatinine 0.7. Liver function tests unremarkable. Hemoglobin 11, white count 10.7, platelet count was 240,000. Urinalysis with pyuria, bacteriuria. Urine culture ESBL-producing E. coli. Stool was negative for blood. IMPRESSION: 1. Acute diverticulitis involving the mid proximal sigmoid colon without [facility] [address] [place] [address] CONSULTATION Name: DALE DAO [facility] Room #: 420-P [facility] IN [facility]#: [id number] Admission: 04/12/17 Attend Phys: Todd Johnson MD Discharge: Date of : 35 Report #: [id number] perforation. 2. Extended-spectrum beta-lactamase producing Escherichia coli urinary tract infection. RECOMMENDATIONS: Continuing antibiotic coverage with meropenem for both intra-abdominal and urinary tract source. <ELECTRONICALLY SIGNED> By: Lamont Clifford MD 04/17/17 1318 1623 2040 Lamont Clifford MD /nt
--- NOTE | ~2017-04-12 | S ---
[facility] [place] [address] SURGICAL PATH RPT PROCEDURE Name: FELIBERTOHAKEEMBRIGITTE LAUREANO Room #: 420-P ADM IN M.R.#: [id number] Admission: 04/12/17 Date of : 35 Discharge: Report #: [id number] Path Case #: [id number] PATHOLOGY REPORT COLLECTION DATE: 04/23/2017 RECEIVED DATE: 04/23/2017 SUBMITTING PHYS: Dr. Artur Yo OTHER PHYS: Dr. Gama Johnson SPECIMEN(S) RECEIVED: A.Bx of small bowel B.Bx of antrum * * * * * * * * * * * * FINAL DIAGNOSIS: A. Bx of small bowel: - Unremarkable small bowel mucosa with intact villous architecture and no increase in intraepithelial lymphocytes. B. Bx of antrum: - Mild chronic inactive gastritis. - An H. pylori immunostain is negative (Block B1; appropriately reactive control). PATHOLOGIST: Saqib Youngblood M.D. REPORT ELECTRONICALLY SIGNED BY: Saqib Youngblood M.D. DATE/TIME: 04/24/2017 11:23 * * * * * * * * * * * * GROSS PATHOLOGY: A. The specimen is received in formalin, labeled "Suman Dao, BX small bowel for celiac," and consists of 2 fragments of hernández soft tissue measuring 0.3 x 0.3 x 0.2 cm and 0.3 x 0.2 x 0.2 cm. They are entirely submitted in cassette A1. B. The specimen is received in formalin, labeled "DaoSuman castro BX of antrum for H. pylori," and consists of 2 fragments of hernández soft tissue measuring 0.6 x 0.2 x 0.1 cm and 0.5 x 0.3 x 0.1 cm. They are entirely submitted in cassette B1. (SDY; 04/23/2017) CLINICAL HISTORY: Nausea, gastritis Gastritis, hiatal hernia INITIAL CPT CODE(S): [facility] [address] [place] [address] SURGICAL PATH RPT PROCEDURE Name: SUMAN DAO Room #: 420-P ADM IN M.R.#: [id number] Admission: 04/12/17 Date of : 35 Discharge: Report #: [id number] Path Case #: [id number]; [id number] B; [id number], [id number] Professional services performed by [facility] at [address], [place] [address] Technical services performed by [facility] at [address] [address], [address], [place] [address]. [facility] [address] [place] [address] PHONE: [phone] DIRECTOR: Filipe Cowan M.D. * * * END OF REPORT * * *
[2017-04-12 18:28] VITALS: BP 145/70
[2017-04-12 19:38] LABS: ABSOLUTE NEUTROPHILS 6.3 thou/uL (1.4-8.2); BASOPHILS 0.8 % (0.0-2.0); EOSINOPHILS 0.6 % (0.0-3.0); HEMATOCRIT 36.6 % (37.0-47.0); HEMOGLOBIN 12.7 gm/dL (12.0-15.0); LYMPHOCYTES 13.7 % (24.0-44.0); MCH 31.6 pg (26.0-34.0); MCHC 34.7 g/dL (28.0-37.0); MCV 90.9 fL (80.0-100.0); MONOCYTES 10.5 % (1.0-8.0); PLATELET COUNT 241 thou/uL (150-400); POLYS 74.4 % (36.0-66.0); RBC 4.03 mil/uL (4.20-5.00); RDW 15.1 % (10.5-14.5); WBC 8.5 thou/uL (4.0-11.0)
[2017-04-12 19:52] LABS: CALCIUM 9.7 mg/dL (8.5-10.1); CREATININE 0.8 mg/dL (0.6-1.0); POTASSIUM 4.3 mmol/L (3.5-5.1)
[2017-04-12 19:53] LABS: PROTIME 10.2 Seconds (9.3-11.4)
[2017-04-12 19:56] LABS: ALBUMIN 3.5 g/dL (3.4-5.0); DIRECT BILIRUBIN 0.1 mg/dL (<0.1-0.3); TOTAL BILIRUBIN 0.3 mg/dL (<0.1-1.0)
[2017-04-12 21:22] LABS: URINE BILIRUBIN NEGATIVE (Negative); URINE BLOOD TRACE (Negative); URINE CLARITY SL CLOUDY; URINE COLOR YELLOW; URINE GLUCOSE-RANDOM* NEGATIVE (Negative); URINE KETONES 1+ (Negative); URINE LEUKOCYTES NEGATIVE (Negative); URINE NITRITE POSITIVE (Negative); URINE PROTEIN (DIPSTICK) NEGATIVE (Negative); URINE UROBILINOGEN 0.2 E.U./dl (0.2-1.0)
[2017-04-12 21:29] LABS: BACTERIA >30 Many /HPF (None Seen); CASTS None Seen /LPF (None Seen); CRYSTALS None Seen /LPF (None Seen); SQUAMOUS 4-10 Moderate /LPF (0-3)
[2017-04-12 21:30] LABS: URINE RBC 0-2 Rare /HPF (0-2)
[2017-04-12 21:35] VITALS: BP 119/92
[2017-04-12 23:05] VITALS: BP 150/59
[2017-04-13 03:28] VITALS: BP 127/54
[2017-04-13 05:51] LABS: HEMATOCRIT 31.9 % (37.0-47.0); HEMOGLOBIN 10.9 gm/dL (12.0-15.0); MCH 31.5 pg (26.0-34.0); MCHC 34.2 g/dL (28.0-37.0); MCV 91.9 fL (80.0-100.0); RBC 3.48 mil/uL (4.20-5.00); RDW 15.3 % (10.5-14.5); WBC 6.8 thou/uL (4.0-11.0)
[2017-04-13 06:00] LABS: CALCIUM 8.8 mg/dL (8.5-10.1); CREATININE 0.7 mg/dL (0.6-1.0); POTASSIUM 3.5 mmol/L (3.5-5.1)
[2017-04-13 08:35] VITALS: BP 124/52
[2017-04-13 16:00] VITALS: BP 116/56
[2017-04-13 18:54] LABS: URINE BILIRUBIN NEGATIVE (Negative); URINE BLOOD NEGATIVE (Negative); URINE CLARITY CLEAR; URINE COLOR YELLOW; URINE GLUCOSE-RANDOM* NEGATIVE (Negative); URINE KETONES NEGATIVE (Negative); URINE LEUKOCYTES-REFLEX NEGATIVE (Negative); URINE PROTEIN (DIPSTICK) NEGATIVE (Negative); URINE SPECIFIC GRAVITY 1.015 (1.005-1.035); URINE UROBILINOGEN 0.2 E.U./dl (0.2-1.0)
[2017-04-13 18:55] LABS: URINE NITRITE-REFLEX POSITIVE (Negative)
[2017-04-13 19:00] LABS: CASTS None Seen /LPF (None Seen); CRYSTALS None Seen /LPF (None Seen); SQUAMOUS 0-3 Few /LPF (0-3); URINE RBC None Seen /HPF (0-2); URINE WBC-REFLEX 0-5 Rare /HPF (0-5)
[2017-04-13 20:30] VITALS: BP 162/73
[2017-04-14 04:30] VITALS: BP 121/52
[2017-04-14 05:58] LABS: HEMATOCRIT 31.6 % (37.0-47.0); HEMOGLOBIN 10.7 gm/dL (12.0-15.0); MCH 31.2 pg (26.0-34.0); MCV 91.7 fL (80.0-100.0); RBC 3.44 mil/uL (4.20-5.00); WBC 5.9 thou/uL (4.0-11.0)
[2017-04-14 06:14] LABS: CALCIUM 8.7 mg/dL (8.5-10.1); CREATININE 0.8 mg/dL (0.6-1.0); POTASSIUM 3.6 mmol/L (3.5-5.1)
[2017-04-14 08:50] VITALS: BP 131/50
[2017-04-14 14:15] VITALS: BP 114/59
[2017-04-14 20:30] VITALS: BP 142/63
[2017-04-14 23:30] VITALS: BP 155/77
[2017-04-15 03:43] VITALS: BP 133/56
[2017-04-15 06:07] LABS: HEMATOCRIT 32.8 % (37.0-47.0); MCH 31.1 pg (26.0-34.0); MCHC 33.5 g/dL (28.0-37.0); MCV 92.7 fL (80.0-100.0); RBC 3.54 mil/uL (4.20-5.00); RDW 14.9 % (10.5-14.5); WBC 10.7 thou/uL (4.0-11.0)
[2017-04-15 06:20] LABS: CALCIUM 8.6 mg/dL (8.5-10.1); CREATININE 0.7 mg/dL (0.6-1.0); POTASSIUM 3.9 mmol/L (3.5-5.1)
[2017-04-15 08:27] VITALS: BP 149/66
[2017-04-15 15:05] VITALS: BP 134/59
[2017-04-16 02:52] VITALS: BP 145/61
[2017-04-16 05:25] VITALS: BP 155/63
[2017-04-16 16:58] VITALS: BP 141/80
[2017-04-16 19:29] VITALS: BP 132/53
[2017-04-17 04:01] VITALS: BP 140/77
[2017-04-17 08:00] VITALS: BP 162/90
[2017-04-17 15:30] VITALS: BP 150/89
[2017-04-17 19:20] VITALS: BP 142/67
[2017-04-18 04:23] VITALS: BP 157/71
[2017-04-18 08:10] VITALS: BP 136/69
[2017-04-18 16:00] VITALS: BP 158/76
[2017-04-18 19:37] VITALS: BP 134/56
[2017-04-19 06:04] VITALS: BP 138/54
[2017-04-19 07:52] VITALS: BP 152/61
[2017-04-19 16:00] VITALS: BP 132/65
[2017-04-19 20:01] VITALS: BP 134/62
[2017-04-20 04:27] VITALS: BP 160/78
[2017-04-20 07:33] VITALS: BP 155/74
[2017-04-20 16:05] VITALS: BP 142/70
[2017-04-20 19:32] VITALS: BP 141/61
[2017-04-21 03:35] VITALS: BP 173/81
[2017-04-21 08:33] VITALS: BP 185/78
[2017-04-21 09:24] LABS: HEMATOCRIT 35.7 % (37.0-47.0); HEMOGLOBIN 12.3 gm/dL (12.0-15.0); MCH 30.9 pg (26.0-34.0); MCHC 34.5 g/dL (28.0-37.0); MCV 89.7 fL (80.0-100.0); PLATELET COUNT 361 thou/uL (150-400); RBC 3.98 mil/uL (4.20-5.00); WBC 4.9 thou/uL (4.0-11.0)
[2017-04-21 09:47] LABS: ALBUMIN 3.2 g/dL (3.4-5.0); CALCIUM 9.6 mg/dL (8.5-10.1); CREATININE 0.8 mg/dL (0.6-1.0); POTASSIUM 3.1 mmol/L (3.5-5.1); TOTAL BILIRUBIN 0.2 mg/dL (<0.1-1.0); TOTAL PROTEIN 6.8 g/dL (6.4-8.2)
[2017-04-21 11:45] LABS: ABSOLUTE NEUTROPHILS 3.2 thou/uL (1.4-8.2); ANISOCYTOSIS 1+; OVALOCYTES FEW; POLYCHROMASIA OCCASIONAL
[2017-04-21 16:01] VITALS: BP 197/99
[2017-04-21 17:58] VITALS: BP 139/60
[2017-04-21 19:19] VITALS: BP 135/58
[2017-04-21 23:58] VITALS: BP 154/75
[2017-04-22 04:53] VITALS: BP 136/55
[2017-04-22 07:35] VITALS: BP 158/70
[2017-04-22 14:45] VITALS: BP 148/66
[2017-04-22 19:25] VITALS: BP 140/62
[2017-04-23 02:43] LABS: ALBUMIN 3.2 g/dL (3.4-5.0); CALCIUM 8.9 mg/dL (8.5-10.1); CREATININE 0.9 mg/dL (0.6-1.0); MAGNESIUM 1.6 mg/dL (1.8-2.4); POTASSIUM 3.5 mmol/L (3.5-5.1); TOTAL BILIRUBIN 0.3 mg/dL (<0.1-1.0); TOTAL PROTEIN 6.9 g/dL (6.4-8.2)
[2017-04-23 03:00] LABS: HEMATOCRIT 36.2 % (37.0-47.0); HEMOGLOBIN 12.2 gm/dL (12.0-15.0); MCH 30.6 pg (26.0-34.0); MCHC 33.6 g/dL (28.0-37.0); PLATELET COUNT 379 thou/uL (150-400); RBC 3.97 mil/uL (4.20-5.00); RDW 14.9 % (10.5-14.5); WBC 7.1 thou/uL (4.0-11.0)
[2017-04-23 04:02] VITALS: BP 149/65
[2017-04-23 04:53] LABS: ABSOLUTE NEUTROPHILS 4.2 thou/uL (1.4-8.2); ANISOCYTOSIS SLIGHT
[2017-04-23 09:38] VITALS: BP 153/66
[2017-04-23 16:00] VITALS: BP 161/70
[2017-04-23 19:17] VITALS: BP 148/76
[2017-04-24 02:46] LABS: URINE BILIRUBIN NEGATIVE (Negative); URINE BLOOD NEGATIVE (Negative); URINE CLARITY CLEAR; URINE COLOR YELLOW; URINE GLUCOSE-RANDOM* NEGATIVE (Negative); URINE KETONES NEGATIVE (Negative); URINE LEUKOCYTES-REFLEX NEGATIVE (Negative); URINE NITRITE-REFLEX NEGATIVE (Negative); URINE PROTEIN (DIPSTICK) NEGATIVE (Negative); URINE SPECIFIC GRAVITY 1.015 (1.005-1.035); URINE UROBILINOGEN 0.2 E.U./dl (0.2-1.0)
[2017-04-24 03:37] VITALS: BP 147/63
[2017-04-24 07:17] VITALS: BP 151/63
[2017-04-24] MEDS ORDERED: AUGMENTIN 875-1 EACH PO (10:57)
[2017-04-24 11:50] VITALS: BP 151/63
[2017-04-24 14:45] VITALS: BP 151/63
[2017-05-14] MEDS ORDERED: CENTRUM SILVER1 EAC4 PO (13:41)
[2017-05-14] MEDS ORDERED: VENTOLIN HFA 1818 GM INH (13:44)
== END 2017-04-24 15:17 | disposition home or self-care (01) | DRG 392 ==
LOC: ER 18:26 → 4E 21:10 → EROBS 21:10 → 4E 21:34
PROVIDERS: Hospitalist; Nurse Practitioner; Nurse Practitioner Family; Specialist
PROC: 0DB68ZX Excision of Stomach, Via Natural or Artificial Opening Endoscopic, Diagnostic (ICD-10-PCS; principal; 2017-04-23)
PROC: 0DB88ZX Excision of Small Intestine, Via Natural or Artificial Opening Endoscopic, Diagnostic (ICD-10-PCS; principal; 2017-04-23)
PROC: 0DB98ZX Excision of Duodenum, Via Natural or Artificial Opening Endoscopic, Diagnostic (ICD-10-PCS; principal; 2017-04-23)
DX: K57.32 Diverticulitis of large intestine without perforation or abscess without bleeding (principal); N39.0 Urinary tract infection, site not specified; M06.9 Rheumatoid arthritis, unspecified; G62.9 Polyneuropathy, unspecified; G89.29 Other chronic pain; Z66 Do not resuscitate; M54.9 Dorsalgia, unspecified; K58.9 Irritable bowel syndrome, unspecified; F32.9 Major depressive disorder, single episode, unspecified; B96.20 Unspecified Escherichia coli [E. coli] as the cause of diseases classified elsewhere; E78.5 Hyperlipidemia, unspecified; F41.9 Anxiety disorder, unspecified; E87.6 Hypokalemia; E83.42 Hypomagnesemia; K29.70 Gastritis, unspecified, without bleeding; K44.9 Diaphragmatic hernia without obstruction or gangrene; Z86.14 Personal history of Methicillin resistant Staphylococcus aureus infection; Z87.11 Personal history of peptic ulcer disease; Z90.710 Acquired absence of both cervix and uterus; Z87.01 Personal history of pneumonia (recurrent); Z90.49 Acquired absence of other specified parts of digestive tract; Z79.899 Other long term (current) drug therapy; Z88.6 Allergy status to analgesic agent; Z88.5 Allergy status to narcotic agent; Z91.030 Bee allergy status; Z88.2 Allergy status to sulfonamides; Z91.018 Allergy to other foods
CPT/HCPCS: 10084; 10879; 27001; 62110; 62900

== ENCOUNTER 2017-04-24 18:37 | Inpatient (IN) | payer OTHER, MEDICARE ==
[~2017-04-24] VITALS: Ht 147.3 cm; Wt 82.1 kg
[~2017-04-24 18:37] MED LIST changes: +AUGMENTIN 875-1 EACH PO
[2017-04-24 18:43] VITALS: BP 159/61
[2017-04-24 20:13] LABS: HEMATOCRIT 34.7 % (37.0-47.0); HEMOGLOBIN 11.8 gm/dL (12.0-15.0); MCH 31.1 pg (26.0-34.0); MCHC 34.1 g/dL (28.0-37.0); MCV 91.1 fL (80.0-100.0); RBC 3.81 mil/uL (4.20-5.00); RDW 15.1 % (10.5-14.5); WBC 4.9 thou/uL (4.0-11.0)
[2017-04-24 20:22] LABS: ANION GAP 11 mmol/L (7-16); BUN 6 mg/dL (7-18); CALCIUM 9.2 mg/dL (8.5-10.1); CHLORIDE 98 mmol/L (98-107); CO2 27 mmol/L (21-32); CREATININE 0.7 mg/dL (0.6-1.0); GLUCOSE 109 mg/dL (74-106); POTASSIUM 3.4 mmol/L (3.5-5.1); SODIUM 136 mmol/L (136-145)
[2017-04-24 20:36] LABS: ALBUMIN 3.2 g/dL (3.4-5.0); SGOT 15 U/L (15-37); SGPT < 6 U/L (30-65); TOTAL BILIRUBIN 0.3 mg/dL (<0.1-1.0); TOTAL PROTEIN 6.9 g/dL (6.4-8.2)
[2017-04-24 20:42] LABS: URINE BILIRUBIN NEGATIVE (Negative); URINE BLOOD 1+ (Negative); URINE CLARITY CLEAR; URINE COLOR YELLOW; URINE GLUCOSE-RANDOM* NEGATIVE (Negative); URINE KETONES NEGATIVE (Negative); URINE LEUKOCYTES-REFLEX NEGATIVE (Negative); URINE NITRITE-REFLEX NEGATIVE (Negative); URINE PROTEIN (DIPSTICK) NEGATIVE (Negative); URINE UROBILINOGEN 0.2 E.U./dl (0.2-1.0)
[2017-04-24 20:45] LABS: SQUAMOUS 0-3 Few /LPF (0-3); URINE RBC 0-2 Rare /HPF (0-2); URINE WBC-REFLEX None Seen /HPF (0-5)
[2017-04-24 20:46] LABS: BACTERIA-REFLEX None Seen /HPF (None Seen); CRYSTALS None Seen /LPF (None Seen)
[2017-04-24 22:20] VITALS: BP 165/50
[2017-04-25] VITALS (7 sets, daily range): BP systolic 130–170; BP diastolic 62–74
[2017-04-25 08:36] LABS: HEMOGLOBIN 11.9 gm/dL (12.0-15.0); MCH 30.8 pg (26.0-34.0); MCV 90.5 fL (80.0-100.0); RBC 3.87 mil/uL (4.20-5.00); RDW 15.2 % (10.5-14.5); WBC 3.9 thou/uL (4.0-11.0)
[2017-04-25 08:43] LABS: CALCIUM 9.3 mg/dL (8.5-10.1); CREATININE 0.7 mg/dL (0.6-1.0); POTASSIUM 3.4 mmol/L (3.5-5.1)
[2017-04-26 04:10] VITALS: BP 184/78
[2017-04-26 06:04] LABS: HEMATOCRIT 35.1 % (37.0-47.0); HEMOGLOBIN 11.7 gm/dL (12.0-15.0); MCH 30.9 pg (26.0-34.0); MCHC 33.3 g/dL (28.0-37.0); MCV 92.9 fL (80.0-100.0); RBC 3.78 mil/uL (4.20-5.00); WBC 3.4 thou/uL (4.0-11.0)
[2017-04-26 06:19] LABS: ALBUMIN 2.9 g/dL (3.4-5.0); CALCIUM 9.1 mg/dL (8.5-10.1); CREATININE 0.7 mg/dL (0.6-1.0); PHOSPHORUS 3.5 mg/dL (2.5-4.9); POTASSIUM 3.1 mmol/L (3.5-5.1)
[2017-04-26 08:12] VITALS: BP 163/95
[2017-04-26] MEDS ORDERED: XANAX 0.5 MG0.5 M1 PO (09:24)
[2017-04-26] MEDS ORDERED: NORCO 5-325 TA1 EACH PO (09:24)
[2017-04-26 11:24] VITALS: BP 166/89
[2017-05-14] MEDS ORDERED: CENTRUM SILVER1 EAC4 PO (13:41)
[2017-05-14] MEDS ORDERED: VENTOLIN HFA 1818 GM INH (13:44)
== END 2017-04-26 13:23 | DRG 392 ==
LOC: ER 18:37 → EROBS 20:28 → 3W 20:28
PROVIDERS: Emergency Medicine; Hospitalist; Nurse Practitioner Family
DX: K57.92 Diverticulitis of intestine, part unspecified, without perforation or abscess without bleeding (principal); N39.0 Urinary tract infection, site not specified; M19.90 Unspecified osteoarthritis, unspecified site; M06.9 Rheumatoid arthritis, unspecified; F32.9 Major depressive disorder, single episode, unspecified; B96.20 Unspecified Escherichia coli [E. coli] as the cause of diseases classified elsewhere; Z66 Do not resuscitate; E78.5 Hyperlipidemia, unspecified; F41.8 Other specified anxiety disorders; M54.9 Dorsalgia, unspecified; G89.29 Other chronic pain; G62.9 Polyneuropathy, unspecified; Z90.49 Acquired absence of other specified parts of digestive tract; Z90.710 Acquired absence of both cervix and uterus; Z88.6 Allergy status to analgesic agent; Z88.2 Allergy status to sulfonamides; Z91.018 Allergy to other foods; Z87.11 Personal history of peptic ulcer disease
CPT/HCPCS: 10879

== ENCOUNTER → 2017-05-20 | Outpatient (CLI) | payer OTHER, MEDICARE ==
[~2017-05-20] VITALS: Ht 149.9 cm; Wt 77.1 kg
[~2017-05-20] MED LIST changes: +ALPRAZOLAM 0.50.5 MG PO; +CENTRUM SILVER1 EAC4 PO; +DIFLUCAN150 MG PO; +LEVAQUIN 500 M500 M2 PO; +MIRTAZAPINE45 MG PO
--- NOTE | ~2017-05-20 | P ---
[facility] [place] [address] PROCEDURE REPORT Name: DALE DAO Room #: REG Franco Bolden#: [id number] Admission: 05/20/17 Attend Phys: Teddy Swain MD Discharge: Date of : 35 Report #: [id number] THIS REPORT FOR: //name// CC: Teddy De La O DATE OF SERVICE: 05/20/2017 BRIEF HISTORY: The patient is an 81-year-old woman who was recently seen at [facility] with abdominal pain and black tarry stools. She was treated for diverticulitis. She presents for further evaluation. In particular, she reports she is having solid food dysphagia and has had previous esophageal dilation. PREOPERATIVE DIAGNOSES: Recent gastrointestinal bleeding and solid food dysphagia. POSTOPERATIVE DIAGNOSES: 1. 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 2. Small hiatus hernia. 3. Moderate antral gastritis. 4. Duodenal diverticulum. 5. Dysphagia. MEDICATIONS: Deep sedation with propofol per anesthesia. SPECIMEN: Brushings of esophagus. ESTIMATED BLOOD LOSS: None. PROCEDURE: EGD with biopsy and Anthony dilation. FINDINGS: Prior to propofol sedation, procedure of upper endoscopy was discussed with the patient as well as potential risks and its complications. She indicates she understands and desires that we proceed. DESCRIPTION OF PROCEDURE: With the patient in left lateral decubitus position, UBmatrixi video endoscope was inserted in the cervical esophagus under direct vision without difficulty. Examination of this organ through its entire length revealed intact mucosa; however, the mucosa was coated with multiple whitish punctate areas highly suggestive of Fe. It is noted she was recently hospitalized and had recent antibiotic therapy. Brushings were obtained. The mucosa otherwise is intact and no ulcers were seen. With regards to dysphagia, her distal esophagus was a little tortuous, but no obstructions or strictures were seen. The GE junction was in appropriate position at 39 cm. [facility] [address] [place] [address] PROCEDURE REPORT Name: DALE DAO Room #: [facility]#: [id number] Admission: 05/20/17 Attend Phys: Teddy Swain MD Discharge: Date of : 35 Report #: [id number] strictures, rings, or masses were seen. Small hiatus hernia was noted. Mucosa in the hernia was noted. The hernia was about 2 cm. Scope was advanced in the stomach, was examined on end view as well as retroflexed views. There was a moderate antral gastritis. It is noted that recent biopsies for H. pylori were negative. No ulcers were seen with regards to her black stool. On retroflexion, the hiatus hernia was seen, but no other abnormalities were identified. The pylorus, duodenal bulb and postbulbar duodenal sweep were inspected and noted to be unremarkable with the exception of a duodenal diverticulum. It is noted the duodenal papilla was in the duodenal diverticulum and yellow bile was seen coming from its mouth. At that point, the scope was slowly withdrawn and careful sequential views confirmed the above findings. Following withdrawal of the scope, she was empirically dilated with a 50-[place] Anthony dilator. There was no resistance. CONDITION OF THE PATIENT UPON DISCHARGE: Following procedure, the patient drowsy. She will be discharged home when fully ambulatory. INSTRUCTIONS TO THE PATIENT AND FAMILY AT THE TIME OF DISCHARGE: Esophagitis as noted above. We will follow up on the brushings. If positive for Fe, we will treat with Diflucan. Proceed with colonoscopy at this time. <ELECTRONICALLY SIGNED> By: Teddy Swain MD 05/25/17 1158 1049 1807 Teddy Swain MD /nt
--- NOTE | ~2017-05-20 | CNG ---
[facility] [place] [address] CYTO-NONGYN REPORT PROCEDURE Name: SUMAN DAO Room #: REG KATHLEEN [facility]enSom[facility]#: [id number] Admission: 05/20/17 Date of : 35 Discharge: Report #: [id number] Path Case #: [id number] CYTOPATHOLOGY REPORT COLLECTION DATE: 05/20/2017 RECEIVED DATE: 05/20/2017 SUBMITTING PHYS: Dr. Teddy Swain OTHER PHYS: Dr. Dawna De La O CLINICAL HISTORY: DTS/ Diverticulitis; R/O Candidia SPECIMEN(S) RECEIVED: A.Esophageal brushing * * * * * * * * * * * * FINAL DIAGNOSIS: A. Esophageal brushing: - No malignant epithelial cells identified. Squamous epithelial cells with abundant yeast and pseudohyphae are present. COMMENT: The yeast and pseudohyphae are morphologically compatible with Fe species. Clinical and endoscopic correlation is required. PATHOLOGIST: Amanda Anderson M.D. REPORT ELECTRONICALLY SIGNED BY: Amanda Anderson M.D. DATE/TIME: 05/21/2017 13:06 * * * * * * * * * * * * GROSS PATHOLOGY: A. Esophageal brushing: The specimen is labeled "Suman Dao" and consists of a brush tip in fixative. One ThinPrep slide was prepared. (mm 05.20.2017) CONTENT SPECIALIST(S): DEJAH Ayon[facility] INITIAL CPT CODE(S): A; 27354 Professional services performed by [facility] at [facility] [address], [place] [address] Technical services performed by [facility] at [address] [place] [address], [address], [place] [address]. [facility] [address] [place] [address] CYTO-NONGYN REPORT PROCEDURE Name: SUMAN DAO Room #: REG CLI Mannie.#: [id number] Admission: 05/20/17 Date of : 35 Discharge: Report #: [id number] Path Case #: [id number] [place] [address], [address] [place] [address] PHONE: [phone] DIRECTOR: Filipe Cowan M.D. * * * END OF REPORT * * *
--- NOTE | ~2017-05-20 | P ---
[facility] [place] [address] PROCEDURE REPORT Name: DALE DAO [facility] #: [id number] Admission: 05/20/17 Attend Phys: Teddy Swain MD Discharge: Date of : 35 Report #: [id number] THIS REPORT FOR: //name// CC: Teddy De La O DATE OF SERVICE: 05/20/2017 BRIEF HISTORY: The patient is an 81-year-old woman who was admitted to [facility] with abdominal pain. She was treated for diverticulitis. She also reported black tarry stools. Her last colonoscopy was in 07/2007. She presents for followup examination. PREOPERATIVE DIAGNOSES: 1. Gastrointestinal bleeding. 2. Abdominal pain. 3. History of colon polyps. POSTOPERATIVE DIAGNOSES: 1. Moderate to severe diverticulosis coli, primarily sigmoid colon. 2. Moderate internal hemorrhoids. MEDICATIONS: Deep sedation with propofol per anesthesia. SPECIMEN: None. ESTIMATED BLOOD LOSS: None. PROCEDURE: Colonoscopy to cecum and terminal ileum. DESCRIPTION OF PROCEDURE: With the patient in left lateral decubitus position, digital examination was completed which revealed no abnormalities. Subsequently, the eriQoo video colonoscope was introduced in the rectum and advanced under direct vision to the cecum. Done with minimal difficulty. The cecum was identified by the ileocecal valve and the appendiceal orifice. I was able to visualize the distal segment of the terminal ileum, which was inspected and noted to be unremarkable. At that point, the scope was slowly withdrawn and careful circumferential views were obtained. Upon slow withdrawal of the scope, there were some limitations of the prep. There was some liquidy material scattered about the colon. However, with irrigation and suctioning mostly on introduction of the scope, much of this material was removed and overall good prep was obtained. The mucosa was within normal limits, normal vascular pattern, normal light reflex. The terminal ileum was normal. No bleeding lesions were seen. As we withdrew the scope, the mucosa was normal. Again, no bleeding sites were identified on this examination. No neoplastic lesions were [facility] [address] [place] [address] PROCEDURE REPORT Name: ANNEL DAOMary MALIHAREJI Room #: REG Franco Knapp#: [id number] Admission: 05/20/17 Attend Phys: Teddy Swain MD Discharge: Date of : 35 Report #: [id number] seen. Arteriovenous malformations were not seen. Inflammatory changes were not seen. As we withdrew the scope, she was noted to have a moderate sigmoid diverticular disease without endoscopic evidence of diverticulitis. No strictures or masses were seen. The scope was withdrawn from the rectum. No abnormalities were seen. Upon retroflexion, small hemorrhoids were seen, but no other abnormalities were identified. There is no evidence of bleeding from the hemorrhoids. Scope was withdrawn. The patient tolerated procedure well. CONDITION OF THE PATIENT UPON DISCHARGE: Following the procedure, the patient drowsy, aroused, conversant. She will be discharged home when fully ambulatory. INSTRUCTIONS TO THE PATIENT AND FAMILY AT THE TIME OF DISCHARGE: No neoplastic or bleeding lesions were seen. Source of her black stools is not entirely clear. If she exhibits evidence of continued GI bleeding, small bowel capsule study may be a consideration at a later date. She does have a history of colon polyps and adenoma removed in 2007. None were seen today. Typical recommendation will be for followup colon exam in 10 years. However, at this point in life, there is likely minimal benefit for routine followup colonoscopy in 10 years. However, if she should develop specific symptoms, colonoscopy should be considered at that time if clinically indicated. She will return to care of Dr. Dawna De La O and return to see me as needed. Last colonoscopy was 07/2007. Withdrawal time from the cecum was 12 minutes and 3 seconds. <ELECTRONICALLY SIGNED> By: Teddy Swain MD 05/25/17 1158 1121 1914 Teddy Swain MD /nt
== END | disposition home or self-care (01) ==
LOC: GI 08:51
DX: K57.30 Diverticulosis of large intestine without perforation or abscess without bleeding (principal); K64.8 Other hemorrhoids; R13.19 Other dysphagia; K20.8 Other esophagitis; K44.9 Diaphragmatic hernia without obstruction or gangrene; K29.70 Gastritis, unspecified, without bleeding; K57.10 Diverticulosis of small intestine without perforation or abscess without bleeding; G43.909 Migraine, unspecified, not intractable, without status migrainosus; E78.5 Hyperlipidemia, unspecified; M19.90 Unspecified osteoarthritis, unspecified site; M79.7 Fibromyalgia; K21.9 Gastro-esophageal reflux disease without esophagitis; F41.8 Other specified anxiety disorders; F32.89 Other specified depressive episodes; Z90.49 Acquired absence of other specified parts of digestive tract; Z90.710 Acquired absence of both cervix and uterus; Z98.41 Cataract extraction status, right eye; Z98.42 Cataract extraction status, left eye; Z87.440 Personal history of urinary (tract) infections; Z88.6 Allergy status to analgesic agent; Z86.010 Personal history of colon polyps; Z98.890 Other specified postprocedural states; Z88.8 Allergy status to other drugs, medicaments and biological substances; Z79.891 Long term (current) use of opiate analgesic
CPT/HCPCS: 62110; 62900

== ENCOUNTER 2017-06-19 08:55 | Inpatient (IN) | payer OTHER, MEDICARE ==
[~2017-06-19] VITALS: Ht 147.3 cm; Wt 76.7 kg
--- NOTE | ~2017-06-19 | HC ---
[facility] [place] [address] CONSULTATION Name: DALE DAO Room #: 433-I ADM IN M.R.#: [id number] Admission: 06/19/17 Attend Phys: Janak Ling MD Discharge: Date of : 35 Report #: [id number] THIS REPORT FOR: //name// CC: Janak De La O DATE OF SERVICE: 06/22/2017 REASON FOR CONSULTATION: I was asked to evaluate concerning multidrug resistant urinary tract infection. HISTORY OF PRESENT ILLNESS: The patient is an 81-year-old who presents with abdominal pain, nausea, dysuria and diarrhea. No fever, chills, or sweats. Treated as an outpatient with nitrofurantoin where she received one dose. Then presented to the Emergency Room. She has had no fever, chills or sweats. Continues to have abdominal discomfort in her lower abdomen and dysuria. She has known fairly severe diverticulosis. She has had stools 6-10 per day in the last several days. She was hospitalized on 06/19/2017. Urinalysis revealed 30,000 MDRO E. coli. The urinalysis revealed rare wbc's, no rbc's, and moderate bacteria. Her white count was normal and creatinine normal. Treated initially with Zosyn. Overall, no improvement. She did start some Imodium and has noted some decrease in her stool volume over the last 24 hours. She does have a history of C. difficile colitis in addition to her diverticular disease. Her last treatment for diverticulitis was in early April. She subsequently underwent upper GI and lower GI endoscopy. From this, it did reveal gastritis and possible esophageal candidiasis. Her lower endoscopy showed diverticular disease. ALLERGIES: ASPIRIN, CHOCOLATE, HONEY, CODEINE, SULFA, COUMADIN. MEDICATIONS: As noted on her MAR including Zosyn. PAST MEDICAL HISTORY: Diverticulitis, irritable bowel syndrome, urinary tract infection, depression, rheumatoid arthritis, fibromyalgia, appendectomy, hysterectomy, chronic back pain, anemia, C. difficile colitis. FAMILY HISTORY: Noncontributory. SOCIAL HISTORY: Nonsmoker. No significant alcohol intake. REVIEW OF SYSTEMS: She has had no cough or sputum production. No chest pain. No rash. PHYSICAL EXAMINATION: VITAL SIGNS: Afebrile, hemodynamically stable. She had a fine tremor at rest. Alert and cooperative. [address] [address] CONSULTATION Name: DALE DAO Room #: 433-I [facility] IN ..#: [id number] Admission: 06/19/17 Attend Phys: Janak Ling MD Discharge: Date of : 35 Report #: [id number] SKIN: Unremarkable. LYMPH: Unremarkable. HEENT: Unremarkable. CHEST: Clear. HEART: Regular. ABDOMEN: Soft. Mild tenderness in the lower abdomen midline toward the left. No appreciable mass. EXTREMITIES: Unremarkable. LABORATORY STUDIES: Sodium 136, potassium 3.4, bicarbonate 29, creatinine 1. C. difficile PCR negative. Urinalysis: Rare wbc's, no rbc's, moderate bacteria, 30,000 E. coli sensitive to gentamicin, amikacin, intermediate nitrofurantoin and Zosyn, sensitive to imipenem. Hemoglobin 12.2, white count 4.0, platelet count 242,000. Differential unremarkable. IMPRESSION: An 81-year-old with known diverticular disease; recurrent Clostridium difficile colitis; recurrent cystitis; rheumatoid arthritis, on no immunosuppression; has more irritable bowel symptoms and I am suspecting diarrhea related to her antibiotic usage. She has had 4 days of antibiotic therapy. With the colony count of only 30,000, I am suspecting likely colonization asymptomatic bacteriuria over true cystitis. Urinalysis was fairly unremarkable. I would recommend discontinuation of her antibiotic therapy. Continue with some Imodium since her Clostridium difficile was negative. May wish a bulk agent like cholestyramine and see if that helps her symptoms. I discussed this with the patient. She is amenable to trying these maneuvers. <ELECTRONICALLY SIGNED> By: Lamont Clifford MD 06/23/17 1036 1512 0245 Lamont Clifford MD /nt
--- NOTE | ~2017-06-19 | S ---
[facility] [place] [address] SURGICAL PATH RPT PROCEDURE Name: SUMAN DAO Room #: 433-I ADM IN M.R.#: [id number] Admission: 06/19/17 Date of : 35 Discharge: Report #: [id number] Path Case #: [id number] PATHOLOGY REPORT COLLECTION DATE: 06/25/2017 RECEIVED DATE: 06/25/2017 SUBMITTING PHYS: Dr. Yemi Hernandez, OTHER PHYS: Joleen Duffy Dr. 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 (CLW:mgr; 06/26/2017) PATHOLOGIST: Amanda Anderson M.D. REPORT ELECTRONICALLY SIGNED BY: Amanda Anderson M.D. DATE/TIME: 06/26/2017 14:40 * * * * * * * * * * * * GROSS PATHOLOGY: Received in formalin labeled "Suman Dao and gallbladder," is a previously opened, 7.5 x 2.6 x 1.0 cm upon reconstruction gallbladder with yellow-green serosal surfaces. Opening the gallbladder reveals yellow-green mucosa diffusely covered with yellow flecks and an average wall thickness of 0.1 cm. Calculi are not present and no masses are noted grossly. Tyre Fitter sections are submitted in A1. (SWS; 06/25/2017) CLINICAL HISTORY: Biliary dyskinesia INITIAL CPT CODE(S): A; 29055 Professional services performed by [facility] at [facility] [address], [place] [address] Technical services performed by [facility] at [address] [place] [address] [place] [address] SURGICAL PATH RPT PROCEDURE Name: SUMAN DAO Room #: 433-I ADM IN [facility].#: [id number] Admission: 06/19/17 Date of : 35 Discharge: Report #: [id number] Path Case #: [id number] [address]. [facility] [address] [address] PHONE: [phone] DIRECTOR: Filipe Cowan M.D. * * * END OF REPORT * * *
[~2017-06-19 08:55] MED LIST changes: -ALPRAZOLAM 0.50.5 MG PO; -DIFLUCAN150 MG PO; -LEVAQUIN 500 M500 M2 PO; -MIRTAZAPINE45 MG PO
[2017-06-19 08:56] VITALS: BP 186/84
[2017-06-19] MEDS ORDERED: MACROBID 100 M100 M2 PO (09:17)
[2017-06-19 09:21] LABS: HEMATOCRIT 40.1 % (37.0-47.0); HEMOGLOBIN 13.5 gm/dL (12.0-15.0); MCH 30.5 pg (26.0-34.0); MCHC 33.6 g/dL (28.0-37.0); MCV 90.7 fL (80.0-100.0); PLATELET COUNT 289 thou/uL (150-400); RBC 4.42 mil/uL (4.20-5.00); RDW 15.3 % (10.5-14.5); WBC 5.2 thou/uL (4.0-11.0)
[2017-06-19 09:27] LABS: URINE BILIRUBIN NEGATIVE (Negative); URINE BLOOD NEGATIVE (Negative); URINE CLARITY CLEAR; URINE COLOR YELLOW; URINE GLUCOSE-RANDOM* NEGATIVE (Negative); URINE KETONES NEGATIVE (Negative); URINE LEUKOCYTES NEGATIVE (Negative); URINE NITRITE POSITIVE (Negative); URINE PROTEIN (DIPSTICK) NEGATIVE (Negative); URINE UROBILINOGEN 0.2 E.U./dl (0.2-1.0)
[2017-06-19 09:30] LABS: ANION GAP 10 mmol/L (7-16); BUN 14 mg/dL (7-18); CALCIUM 9.5 mg/dL (8.5-10.1); CHLORIDE 97 mmol/L (98-107); CO2 24 mmol/L (21-32); GLUCOSE 119 mg/dL (74-106); POTASSIUM 4.1 mmol/L (3.5-5.1); SODIUM 131 mmol/L (136-145)
[2017-06-19 09:36] LABS: CASTS None Seen /LPF (None Seen); CRYSTALS None Seen /LPF (None Seen); SQUAMOUS 0-3 Few /LPF (0-3); URINE RBC None Seen /HPF (0-2); URINE WBC 0-5 Rare /HPF (0-5)
[2017-06-19 09:36] LABS: DIRECT BILIRUBIN < 0.1 mg/dL (<0.1-0.3); LIPASE 76 U/L (73-393); SGOT 24 U/L (15-37); SGPT 22 U/L (30-65); TOTAL BILIRUBIN 0.4 mg/dL (<0.1-1.0); TOTAL PROTEIN 7.6 g/dL (6.4-8.2)
[2017-06-19 09:46] LABS: ABSOLUTE NEUTROPHILS 3.2 thou/uL (1.4-8.2)
[2017-06-19 09:47] LABS: ANISOCYTOSIS 1+
[2017-06-19 13:40] VITALS: BP 139/72
[2017-06-19 15:09] VITALS: BP 139/72
[2017-06-19 17:05] VITALS: BP 135/80
[2017-06-19 18:02] VITALS: BP 156/84
[2017-06-19 19:18] VITALS: BP 151/65
[2017-06-20 03:29] VITALS: BP 148/88
[2017-06-20 04:20] LABS: HEMATOCRIT 37.2 % (37.0-47.0); HEMOGLOBIN 12.5 gm/dL (12.0-15.0); MCH 30.4 pg (26.0-34.0); MCHC 33.6 g/dL (28.0-37.0); MCV 90.6 fL (80.0-100.0); RBC 4.1 mil/uL (4.20-5.00); RDW 15.4 % (10.5-14.5); WBC 4.8 thou/uL (4.0-11.0)
[2017-06-20 08:11] VITALS: BP 166/65
[2017-06-20 16:32] VITALS: BP 135/71
[2017-06-20 19:26] VITALS: BP 146/76
[2017-06-21 03:20] VITALS: BP 90/50
[2017-06-21 05:55] LABS: HEMATOCRIT 36.2 % (37.0-47.0); HEMOGLOBIN 12.2 gm/dL (12.0-15.0); MCH 30.7 pg (26.0-34.0); MCHC 33.7 g/dL (28.0-37.0); PLATELET COUNT 242 thou/uL (150-400); RBC 3.98 mil/uL (4.20-5.00); RDW 15.4 % (10.5-14.5)
[2017-06-21 05:57] LABS: CALCIUM 8.7 mg/dL (8.5-10.1); POTASSIUM 3.4 mmol/L (3.5-5.1)
[2017-06-21 06:48] LABS: ABSOLUTE NEUTROPHILS 1.5 thou/uL (1.4-8.2); ANISOCYTOSIS SLIGHT
[2017-06-21 08:00] VITALS: BP 153/74
[2017-06-21] MEDS ORDERED: ALPRAZOLAM 0.50.5 MG PO (11:35)
[2017-06-21 12:50] VITALS: BP 153/74
[2017-06-21 16:00] VITALS: BP 175/94
[2017-06-21 19:35] VITALS: BP 104/56
[2017-06-22 04:05] VITALS: BP 138/71
[2017-06-22 08:36] VITALS: BP 172/80
[2017-06-22 14:38] LABS: POTASSIUM 3.4 mmol/L (3.5-5.1)
[2017-06-22 16:20] VITALS: BP 133/67
[2017-06-22 19:23] VITALS: BP 126/60
[2017-06-23 04:05] VITALS: BP 139/70
[2017-06-23 05:19] LABS: HEMOGLOBIN 11.6 gm/dL (12.0-15.0); MCH 31.2 pg (26.0-34.0); MCV 91.5 fL (80.0-100.0); RBC 3.71 mil/uL (4.20-5.00); RDW 15.6 % (10.5-14.5); WBC 6.3 thou/uL (4.0-11.0)
[2017-06-23 05:39] LABS: ALBUMIN 3.4 g/dL (3.4-5.0); CALCIUM 8.8 mg/dL (8.5-10.1); CREATININE 0.8 mg/dL (0.6-1.0); POTASSIUM 3.6 mmol/L (3.5-5.1); TOTAL BILIRUBIN 0.2 mg/dL (<0.1-1.0); TOTAL PROTEIN 6.2 g/dL (6.4-8.2)
[2017-06-23 08:29] VITALS: BP 144/79
[2017-06-23 16:00] VITALS: BP 116/80
[2017-06-23 20:39] VITALS: BP 149/69
[2017-06-24 03:52] VITALS: BP 149/62
[2017-06-24 06:11] LABS: HEMATOCRIT 36.4 % (37.0-47.0); HEMOGLOBIN 12.2 gm/dL (12.0-15.0); MCH 30.8 pg (26.0-34.0); MCHC 33.5 g/dL (28.0-37.0); RBC 3.95 mil/uL (4.20-5.00); RDW 15.6 % (10.5-14.5); WBC 4.5 thou/uL (4.0-11.0)
[2017-06-24 06:27] LABS: ALBUMIN 3.5 g/dL (3.4-5.0); CALCIUM 8.7 mg/dL (8.5-10.1); CREATININE 0.8 mg/dL (0.6-1.0); POTASSIUM 3.6 mmol/L (3.5-5.1); TOTAL BILIRUBIN 0.4 mg/dL (<0.1-1.0); TOTAL PROTEIN 6.8 g/dL (6.4-8.2)
[2017-06-24 07:15] VITALS: BP 139/70
[2017-06-24 15:35] VITALS: BP 165/84
[2017-06-24 20:32] VITALS: BP 119/69
[2017-06-25] VITALS (7 sets, daily range): BP systolic 105–148; BP diastolic 47–67
[2017-06-26 04:35] VITALS: BP 155/62
[2017-06-26 05:07] LABS: ALBUMIN 3.2 g/dL (3.4-5.0); CALCIUM 8.9 mg/dL (8.5-10.1); CREATININE 0.9 mg/dL (0.6-1.0); POTASSIUM 3.9 mmol/L (3.5-5.1); TOTAL BILIRUBIN 0.2 mg/dL (<0.1-1.0); TOTAL PROTEIN 6.4 g/dL (6.4-8.2)
[2017-06-26 05:35] LABS: HEMATOCRIT 34.8 % (37.0-47.0); HEMOGLOBIN 11.6 gm/dL (12.0-15.0); MCHC 33.4 g/dL (28.0-37.0); MCV 92.9 fL (80.0-100.0); RBC 3.75 mil/uL (4.20-5.00); WBC 7.4 thou/uL (4.0-11.0)
[2017-06-26 08:00] VITALS: BP 158/53
[2017-06-26 15:25] VITALS: BP 128/63
[2017-06-26 21:53] VITALS: BP 109/66
[2017-06-27 03:12] VITALS: BP 143/54
[2017-06-27 08:44] VITALS: BP 186/81
[2017-06-27 16:54] VITALS: BP 141/71
[2017-06-27 20:07] VITALS: BP 141/57
[2017-06-28 04:05] VITALS: BP 180/78
[2017-06-28 08:12] VITALS: BP 104/84
[2017-06-28 10:39] LABS: HEMOGLOBIN 11.7 gm/dL (12.0-15.0); MCH 31.1 pg (26.0-34.0); MCHC 33.4 g/dL (28.0-37.0); MCV 93.2 fL (80.0-100.0); RBC 3.76 mil/uL (4.20-5.00); RDW 15.5 % (10.5-14.5)
[2017-06-28 11:00] LABS: ALBUMIN 3.1 g/dL (3.4-5.0); CALCIUM 8.8 mg/dL (8.5-10.1); CREATININE 0.8 mg/dL (0.6-1.0); POTASSIUM 3.5 mmol/L (3.5-5.1); TOTAL BILIRUBIN 0.3 mg/dL (<0.1-1.0); TOTAL PROTEIN 6.5 g/dL (6.4-8.2)
[2017-06-28 16:00] VITALS: BP 148/62
== END 2017-06-28 16:21 | DRG 417 ==
LOC: ER 08:55 → 4S 09:42 → EROBS 09:42 → 4S 17:06
PROVIDERS: Emergency Medicine; Hospitalist; Surgery
PROC: 0FT44ZZ Resection of Gallbladder, Percutaneous Endoscopic Approach (ICD-10-PCS; principal; 2017-06-25)
DX: K82.8 Other specified diseases of gallbladder (principal); E43 Unspecified severe protein-calorie malnutrition; N39.0 Urinary tract infection, site not specified; K81.1 Chronic cholecystitis; M06.9 Rheumatoid arthritis, unspecified; F32.9 Major depressive disorder, single episode, unspecified; K20.8 Other esophagitis; K29.70 Gastritis, unspecified, without bleeding; K44.9 Diaphragmatic hernia without obstruction or gangrene; K57.30 Diverticulosis of large intestine without perforation or abscess without bleeding; K76.0 Fatty (change of) liver, not elsewhere classified; Z90.49 Acquired absence of other specified parts of digestive tract; Z98.42 Cataract extraction status, left eye; Z98.41 Cataract extraction status, right eye; Z79.899 Other long term (current) drug therapy; Z88.6 Allergy status to analgesic agent; Z88.5 Allergy status to narcotic agent; Z91.018 Allergy to other foods; Z90.710 Acquired absence of both cervix and uterus; Z68.35 Body mass index [BMI] 35.0-35.9, adult
CPT/HCPCS: 10195; 27001; 50010; 50101; 50249; 50411; 50555; 50558; 50962; 51436; 51489; 52182; 52265; 52266; 53307; 53310; 54022; 54118; 55245; 55317; 56462; 56525; 56526; 56639; 62110; 62900; 70005

== ENCOUNTER 2017-07-04 19:03 | Inpatient (IN) | payer OTHER, MEDICARE ==
[~2017-07-04] VITALS: Ht 147.3 cm; Wt 78.9 kg
--- NOTE | ~2017-07-04 | EKG ---
[place] [address] [facility] [place] [address] ELECTROCARDIOGRAM REPORT Name: DALE DAO Room #: 419-P [facility] IN M.R.#: [id number] Admission: 07/05/17 Attend Phys: Jayesh Woods DO Discharge: Date of : 35 Report #: [id number] THIS REPORT FOR: //name// [facility] ED Test Date: 2017-07-04 Test Time: 19:57:10 Pat Name: DALE DAO Department: Room: [facility] Gender: F Biological Science Technician: LEANNA : 1935 Requested By: Fareed Ann Order Number: [id number] MD: Declan Woo Measurements Intervals [place] Rate: 85 P: 32 [place]: 277 QRS: -56 QRSD: 133 T: 24 QT: 398 QTc: 474 Interpretive Statements Sinus rhythm Prolonged [place] interval Right bundle branch block Inferior infarct, old Compared to ECG 02/01/2017 13:25:31 No significant change was found Electronically Signed On 07-07-2017 13:27:23 CDT by Declan Woo [email or web address] <ELECTRONICALLY SIGNED> By: Declan Woo MD, [facility] 07/07/17 1327 56 56 Declan Woo MD, [facility] /EPI
[~2017-07-04 19:03] MED LIST changes: +ALPRAZOLAM 0.50.5 MG PO
[2017-07-04 19:14] VITALS: BP 123/92
[2017-07-04 21:00] LABS: ABSOLUTE NEUTROPHILS 5.5 thou/uL (1.4-8.2); BASOPHILS 0.3 % (0.0-2.0); EOSINOPHILS 3.2 % (0.0-3.0); HEMATOCRIT 31.1 % (37.0-47.0); HEMOGLOBIN 10.6 gm/dL (12.0-15.0); LYMPHOCYTES 20.7 % (24.0-44.0); MCH 31.6 pg (26.0-34.0); MCHC 34.2 g/dL (28.0-37.0); MCV 92.4 fL (80.0-100.0); MONOCYTES 11.4 % (1.0-8.0); PLATELET COUNT 192 thou/uL (150-400); POLYS 64.4 % (36.0-66.0); RBC 3.37 mil/uL (4.20-5.00); RDW 15.8 % (10.5-14.5); WBC 8.5 thou/uL (4.0-11.0)
[2017-07-04 21:09] LABS: ANION GAP 8 mmol/L (7-16); BUN 14 mg/dL (7-18); CALCIUM 8.7 mg/dL (8.5-10.1); CHLORIDE 107 mmol/L (98-107); CO2 25 mmol/L (21-32); CREATININE 0.9 mg/dL (0.6-1.0); GLUCOSE 124 mg/dL (74-106); POTASSIUM 4.1 mmol/L (3.5-5.1); SODIUM 140 mmol/L (136-145)
[2017-07-04 21:18] LABS: TROPONIN-I < 0.04 ng/mL (<0.06)
[2017-07-04 23:28] LABS: URINE BILIRUBIN NEGATIVE (Negative); URINE BLOOD NEGATIVE (Negative); URINE CLARITY CLEAR; URINE COLOR YELLOW; URINE GLUCOSE-RANDOM* NEGATIVE (Negative); URINE KETONES NEGATIVE (Negative); URINE NITRITE-REFLEX NEGATIVE (Negative); URINE PROTEIN (DIPSTICK) NEGATIVE (Negative); URINE UROBILINOGEN 0.2 E.U./dl (0.2-1.0)
[2017-07-04 23:42] LABS: URINE LEUKOCYTES-REFLEX 1+ (Negative)
[2017-07-04 23:44] LABS: CASTS None Seen /LPF (None Seen); CRYSTALS None Seen /LPF (None Seen); MUCUS None Seen strn/LPF (None Seen); SQUAMOUS 0-3 Few /LPF (0-3); URINE RBC None Seen /HPF (0-2)
[2017-07-05 07:34] VITALS: BP 127/56
[2017-07-05 10:59] LABS: ALBUMIN 2.9 g/dL (3.4-5.0); DIRECT BILIRUBIN < 0.1 mg/dL (<0.1-0.3); SGOT 23 U/L (15-37); SGPT 20 U/L (30-65); TOTAL BILIRUBIN 0.2 mg/dL (<0.1-1.0); TOTAL PROTEIN 6.1 g/dL (6.4-8.2)
[2017-07-05 19:45] VITALS: BP 130/71
[2017-07-06 03:58] VITALS: BP 135/51
[2017-07-06 04:23] LABS: BASOPHILS 0.1 % (0.0-2.0); HEMATOCRIT 30.7 % (37.0-47.0); HEMOGLOBIN 10.4 gm/dL (12.0-15.0); LYMPHOCYTES 4.3 % (24.0-44.0); MCH 31.4 pg (26.0-34.0); MCV 92.2 fL (80.0-100.0); MONOCYTES 1.9 % (1.0-8.0); PLATELET COUNT 208 thou/uL (150-400); POLYS 93.7 % (36.0-66.0); RBC 3.33 mil/uL (4.20-5.00); RDW 15.7 % (10.5-14.5); WBC 6.4 thou/uL (4.0-11.0)
[2017-07-06 04:32] LABS: CALCIUM 9.1 mg/dL (8.5-10.1); CREATININE 1.1 mg/dL (0.6-1.0); MAGNESIUM 1.5 mg/dL (1.8-2.4); POTASSIUM 3.5 mmol/L (3.5-5.1)
[2017-07-06 07:17] VITALS: BP 134/59
[2017-07-06 16:02] VITALS: BP 141/53
[2017-07-06 20:42] VITALS: BP 143/56
[2017-07-07 04:35] VITALS: BP 143/59
[2017-07-07 05:32] LABS: ABSOLUTE NEUTROPHILS 7.7 thou/uL (1.4-8.2); BASOPHILS 0.1 % (0.0-2.0); HEMATOCRIT 28.4 % (37.0-47.0); HEMOGLOBIN 9.7 gm/dL (12.0-15.0); LYMPHOCYTES 3.2 % (24.0-44.0); MCH 31.2 pg (26.0-34.0); MCV 91.7 fL (80.0-100.0); MONOCYTES 2.1 % (1.0-8.0); PLATELET COUNT 234 thou/uL (150-400); POLYS 94.6 % (36.0-66.0); RDW 16.1 % (10.5-14.5); WBC 8.2 thou/uL (4.0-11.0)
[2017-07-07 05:44] LABS: CALCIUM 8.8 mg/dL (8.5-10.1); CREATININE 0.9 mg/dL (0.6-1.0); POTASSIUM 3.8 mmol/L (3.5-5.1)
[2017-07-07 07:20] VITALS: BP 156/68
[2017-07-07 15:28] VITALS: BP 142/67
[2017-07-07 20:23] VITALS: BP 156/68
[2017-07-08 04:11] VITALS: BP 162/88
[2017-07-08 08:39] VITALS: BP 144/65
[2017-07-08] MEDS ORDERED: LEVAQUIN 500 M500 M2 PO (09:00)
[2017-07-08 09:53] VITALS: BP 144/65
[2017-07-08 10:16] VITALS: BP 144/65
== END 2017-07-08 13:54 | disposition home health service (06) | DRG 871 ==
LOC: ER 19:03 → EROBS 07-05 00:53 → 4E 07-05 00:53
PROVIDERS: Emergency Medicine; Family Medicine; Nurse Practitioner; Surgery
PROC: 05HC33Z Insertion of Infusion Device into Left Basilic Vein, Percutaneous Approach (ICD-10-PCS; principal; 2017-07-05)
DX: A41.9 Sepsis, unspecified organism (principal); J96.00 Acute respiratory failure, unspecified whether with hypoxia or hypercapnia; N39.0 Urinary tract infection, site not specified; M19.90 Unspecified osteoarthritis, unspecified site; F32.9 Major depressive disorder, single episode, unspecified; M06.9 Rheumatoid arthritis, unspecified; G62.9 Polyneuropathy, unspecified; E78.5 Hyperlipidemia, unspecified; F41.9 Anxiety disorder, unspecified; G89.29 Other chronic pain; M54.9 Dorsalgia, unspecified; Z66 Do not resuscitate; Z90.49 Acquired absence of other specified parts of digestive tract; Z90.710 Acquired absence of both cervix and uterus; Z88.6 Allergy status to analgesic agent; Z88.8 Allergy status to other drugs, medicaments and biological substances; Z87.11 Personal history of peptic ulcer disease; Z79.899 Other long term (current) drug therapy
CPT/HCPCS: 10783; 27001

== ENCOUNTER 2017-10-15 10:35 | Emergency (ER) | payer OTHER, MEDICARE ==
[~2017-10-15] VITALS: Ht 147.3 cm; Wt 77.1 kg
[~2017-10-15 10:35] MED LIST changes: +LEVAQUIN 500 M500 M2 PO
[2017-10-15 11:22] LABS: HEMATOCRIT 39.9 % (37.0-47.0); HEMOGLOBIN 13.4 gm/dL (12.0-15.0); MCH 30.1 pg (26.0-34.0); MCHC 33.6 g/dL (28.0-37.0); MCV 89.4 fL (80.0-100.0); PLATELET COUNT 210 thou/uL (150-400); RBC 4.46 mil/uL (4.20-5.00); RDW 15.2 % (10.5-14.5); WBC 3.5 thou/uL (4.0-11.0)
[2017-10-15 11:28] LABS: CALCIUM 9.3 mg/dL (8.5-10.1); POTASSIUM 3.8 mmol/L (3.5-5.1)
[2017-10-15 11:33] LABS: ALBUMIN 3.9 g/dL (3.4-5.0); TOTAL BILIRUBIN 0.3 mg/dL (<0.1-1.0); TOTAL PROTEIN 7.1 g/dL (6.4-8.2)
[2017-10-15 11:41] LABS: URINE BILIRUBIN NEGATIVE (Negative); URINE BLOOD NEGATIVE (Negative); URINE COLOR YELLOW; URINE GLUCOSE-RANDOM* NEGATIVE (Negative); URINE KETONES NEGATIVE (Negative); URINE PROTEIN (DIPSTICK) NEGATIVE (Negative); URINE UROBILINOGEN 0.2 E.U./dl (0.2-1.0)
[2017-10-15 11:51] LABS: URINE CLARITY HAZY; URINE LEUKOCYTES-REFLEX TRACE (Negative); URINE NITRITE-REFLEX POSITIVE (Negative)
[2017-10-15 12:03] LABS: CASTS None Seen /LPF (None Seen); CRYSTALS None Seen /LPF (None Seen); SQUAMOUS 0-3 Few /LPF (0-3)
[2017-10-15 12:04] LABS: BACTERIA-REFLEX >30 Many /HPF (None Seen); URINE RBC None Seen /HPF (0-2); URINE WBC-REFLEX 6-15 Few /HPF (0-5)
[2017-10-15 12:25] LABS: ABSOLUTE NEUTROPHILS 1.6 thou/uL (1.4-8.2); ANISOCYTOSIS 1+; MYELOCYTES 1 %
[2017-10-15 12:26] LABS: OVALOCYTES 1+
[2017-10-15] MEDS ORDERED: ZOFRAN ODT4 MG PO (14:23)
[2017-10-15 15:31] VITALS: BP 134/64
== END 2017-10-15 15:32 | disposition home or self-care (01) ==
LOC: ER 10:35
PROVIDERS: Physician Assistant
DX: N39.0 Urinary tract infection, site not specified (principal); R10.30 Lower abdominal pain, unspecified; M19.90 Unspecified osteoarthritis, unspecified site; F32.9 Major depressive disorder, single episode, unspecified; Z90.710 Acquired absence of both cervix and uterus; Z88.5 Allergy status to narcotic agent; Z88.8 Allergy status to other drugs, medicaments and biological substances

== ENCOUNTER 2017-11-02 17:41 | Emergency (ER) | payer OTHER, MEDICARE ==
[~2017-11-02] VITALS: Ht 147.3 cm; Wt 77.1 kg
[2017-11-02] MEDS ORDERED: MACROBID 100 M100 M1 PO (18:07)
[2017-11-02] MEDS ORDERED: MIRTAZAPINE45 MG PO (18:07)
[2017-11-02 18:20] LABS: URINE BILIRUBIN NEGATIVE (Negative); URINE BLOOD NEGATIVE (Negative); URINE CLARITY CLEAR; URINE COLOR YELLOW; URINE GLUCOSE-RANDOM* NEGATIVE (Negative); URINE KETONES 1+ (Negative); URINE LEUKOCYTES NEGATIVE (Negative); URINE NITRITE POSITIVE (Negative); URINE PROTEIN (DIPSTICK) NEGATIVE (Negative); URINE UROBILINOGEN 0.2 E.U./dl (0.2-1.0)
[2017-11-02 18:27] LABS: SQUAMOUS None Seen /LPF (0-3)
[2017-11-02 18:28] LABS: BACTERIA 1-9 Few /HPF (None Seen); CASTS None Seen /LPF (None Seen); CRYSTALS None Seen /LPF (None Seen); URINE RBC None Seen /HPF (0-2); URINE WBC None Seen /HPF (0-5)
[2017-11-02 19:20] LABS: HEMATOCRIT 37.1 % (37.0-47.0); HEMOGLOBIN 12.7 gm/dL (12.0-15.0); MCH 30.2 pg (26.0-34.0); MCHC 34.2 g/dL (28.0-37.0); MCV 88.2 fL (80.0-100.0); PLATELET COUNT 214 thou/uL (150-400); RBC 4.21 mil/uL (4.20-5.00); RDW 15.2 % (10.5-14.5); WBC 4.4 thou/uL (4.0-11.0)
[2017-11-02 19:28] LABS: CALCIUM 9.1 mg/dL (8.5-10.1); POTASSIUM 3.5 mmol/L (3.5-5.1)
[2017-11-02] MEDS ORDERED: ZOFRAN ODT4 MG PO (21:14)
[2017-11-02 21:22] VITALS: BP 141/52
== END 2017-11-02 21:23 | disposition home or self-care (01) ==
LOC: ER 17:41
PROVIDERS: Emergency Medicine
DX: N39.0 Urinary tract infection, site not specified (principal); M06.9 Rheumatoid arthritis, unspecified; F32.9 Major depressive disorder, single episode, unspecified; G62.9 Polyneuropathy, unspecified; Z90.89 Acquired absence of other organs; Z90.710 Acquired absence of both cervix and uterus; Z90.49 Acquired absence of other specified parts of digestive tract; Z98.890 Other specified postprocedural states; Z88.6 Allergy status to analgesic agent; Z91.018 Allergy to other foods; Z88.5 Allergy status to narcotic agent

== ENCOUNTER 2018-01-12 10:06 | Emergency (ER) | payer OTHER, MEDICARE ==
[~2018-01-12] VITALS: Ht 147.3 cm; Wt 77.1 kg
--- NOTE | ~2018-01-12 | EKG ---
[address] [place] [address] ELECTROCARDIOGRAM REPORT Name: DALE DAO [facility] [id number] Admission: 01/12/18 Attend Phys: Discharge: 01/12/18 Date of : 35 Report #: [id number] THIS REPORT FOR: //name// [facility] ED Test Date: 2018-01-12 Test Time: 11:06:07 Pat Name: DALE DAO Department: Room: Gender: F Manager Front Office: jlpatricio : 1935 Requested By: Shadi Choi Order Number: [id number] MD: Jon Summers Measurements Intervals [place] Rate: 72 P: 61 NV: 263 QRS: -58 QRSD: 145 T: 19 QT: 440 QTc: 482 Interpretive Statements Sinus rhythm Prolonged [place] interval Right bundle branch block Left ventricular hypertrophy Compared to ECG 07/04/2017 19:57:10 Left ventricular hypertrophy now present Myocardial infarct finding no longer present Electronically Signed On 01-13-2018 17:39:04 CDT by Jon Summers [email or web address] <ELECTRONICALLY SIGNED> By: Jon Summers MD 01/13/18 1739 1106 1106 Jon Summers MD /EPI
[~2018-01-12 10:06] MED LIST changes: +MIRTAZAPINE45 MG PO
[2018-01-12 10:55] LABS: ABSOLUTE NEUTROPHILS 2.5 thou/uL (1.4-8.2); BASOPHILS 0.6 % (0.0-2.0); EOSINOPHILS 1.2 % (0.0-3.0); HEMATOCRIT 38.1 % (37.0-47.0); HEMOGLOBIN 13.3 gm/dL (12.0-15.0); LYMPHOCYTES 27.5 % (24.0-44.0); MCH 31.2 pg (26.0-34.0); MCHC 34.8 g/dL (28.0-37.0); MCV 89.6 fL (80.0-100.0); MONOCYTES 11.7 % (1.0-8.0); PLATELET COUNT 205 thou/uL (150-400); RBC 4.25 mil/uL (4.20-5.00); RDW 16.2 % (10.5-14.5); WBC 4.2 thou/uL (4.0-11.0)
[2018-01-12 11:03] LABS: ANION GAP 7 mmol/L (7-16); BUN 11 mg/dL (7-18); CALCIUM 10.1 mg/dL (8.5-10.1); CHLORIDE 98 mmol/L (98-107); CO2 27 mmol/L (21-32); GLUCOSE 119 mg/dL (74-106); POTASSIUM 4.3 mmol/L (3.5-5.1); SODIUM 132 mmol/L (136-145)
[2018-01-12 11:13] LABS: ALBUMIN 3.7 g/dL (3.4-5.0); LIPASE 95 U/L (73-393); SGOT 23 U/L (15-37); SGPT 16 U/L (30-65); TOTAL BILIRUBIN 0.4 mg/dL (<0.1-1.0); TOTAL PROTEIN 7.5 g/dL (6.4-8.2); TROPONIN-I <0.06 ng/mL (<0.06)
[2018-01-12 11:34] LABS: URINE BILIRUBIN NEGATIVE (Negative); URINE BLOOD NEGATIVE (Negative); URINE CLARITY CLEAR; URINE COLOR YELLOW; URINE GLUCOSE-RANDOM* NEGATIVE (Negative); URINE KETONES NEGATIVE (Negative); URINE LEUKOCYTES-REFLEX NEGATIVE (Negative); URINE NITRITE-REFLEX NEGATIVE (Negative); URINE PROTEIN (DIPSTICK) NEGATIVE (Negative); URINE SPECIFIC GRAVITY <= 1.005 (1.005-1.035); URINE UROBILINOGEN 0.2 E.U./dl (0.2-1.0)
[2018-01-12] MEDS ORDERED: PHENERGAN 25 MG25 M1 PO (12:10)
[2018-01-12 12:21] VITALS: BP 148/64
== END 2018-01-12 12:22 | disposition home or self-care (01) ==
LOC: ER 10:06
PROVIDERS: Physician Assistant
DX: R10.13 Epigastric pain (principal); R11.2 Nausea with vomiting, unspecified; R19.7 Diarrhea, unspecified; M06.9 Rheumatoid arthritis, unspecified; Z90.49 Acquired absence of other specified parts of digestive tract; Z90.710 Acquired absence of both cervix and uterus; Z79.899 Other long term (current) drug therapy; Z88.6 Allergy status to analgesic agent; Z88.5 Allergy status to narcotic agent; Z91.018 Allergy to other foods

== ENCOUNTER 2018-02-12 12:52 | Inpatient (IN) | payer OTHER, MEDICARE ==
[~2018-02-12] VITALS: Ht 144.8 cm; Wt 77.1 kg
--- NOTE | ~2018-02-12 | EKG ---
[address] [address] ELECTROCARDIOGRAM REPORT Name: DAO,HAKEEMBRIGITTE ARASHClif Room #: 429-P [facility] IN ..#: [id number] Admission: 02/12/18 Attend Phys: Todd Johnson MD Discharge: Date of : 35 Report #: [id number] THIS REPORT FOR: //name// [facility] ED Test Date: 2018-02-12 Test Time: 13:37:36 Pat Name: DALE DAO Department: Room: 429 Gender: F Ghost Writer: [place] : 1935 Requested By: Earl Abraham Order Number: [id number] MD: Jon Summers Measurements Intervals [place] Rate: 76 P: 71 [place]: 281 QRS: -62 QRSD: 141 T: 18 QT: 435 QTc: 490 Interpretive Statements Sinus rhythm Prolonged [place] interval Right bundle branch block Inferior infarct, old Compared to ECG 01/12/2018 11:06:07 Myocardial infarct finding now present Left ventricular hypertrophy no longer present Electronically Signed On 02-13-2018 8:30:40 CDT by Jon Summers [email or web address] <ELECTRONICALLY SIGNED> By: Jon Summers MD 02/13/18 0830 1337 1337 Jon Summers MD /EPI
[2018-02-12 12:52] VITALS: BP 143/58
[2018-02-12 14:15] LABS: URINE BILIRUBIN NEGATIVE (Negative); URINE BLOOD NEGATIVE (Negative); URINE CLARITY CLEAR; URINE COLOR YELLOW; URINE GLUCOSE-RANDOM* TRACE (Negative); URINE KETONES NEGATIVE (Negative); URINE LEUKOCYTES-REFLEX 2+ (Negative); URINE NITRITE-REFLEX POSITIVE (Negative); URINE PROTEIN (DIPSTICK) TRACE (Negative)
[2018-02-12 14:24] LABS: BACTERIA-REFLEX >30 Many /HPF (None Seen); CASTS None Seen /LPF (None Seen); CRYSTALS None Seen /LPF (None Seen); SQUAMOUS 0-3 Few /LPF (0-3); URINE RBC None Seen /HPF (0-2); URINE WBC-REFLEX 6-15 Few /HPF (0-5)
[2018-02-12 14:41] LABS: CALCIUM 9.4 mg/dL (8.5-10.1); CREATININE 0.9 mg/dL (0.6-1.0); POTASSIUM 5.1 mmol/L (3.5-5.1)
[2018-02-12 14:47] LABS: ALBUMIN 3.8 g/dL (3.4-5.0); TOTAL BILIRUBIN 0.4 mg/dL (<0.1-1.0); TOTAL PROTEIN 7.5 g/dL (6.4-8.2)
[2018-02-12 15:33] LABS: ABSOLUTE NEUTROPHILS 3.3 thou/uL (1.4-8.2); BASOPHILS 0.1 % (0.0-2.0); EOSINOPHILS 0.8 % (0.0-3.0); HEMATOCRIT 38.2 % (37.0-47.0); HEMOGLOBIN 12.9 gm/dL (12.0-15.0); LYMPHOCYTES 23.4 % (24.0-44.0); MCH 30.6 pg (26.0-34.0); MCHC 33.8 g/dL (28.0-37.0); MCV 90.5 fL (80.0-100.0); MONOCYTES 8.1 % (1.0-8.0); PLATELET COUNT 177 thou/uL (150-400); POLYS 67.6 % (36.0-66.0); RBC 4.22 mil/uL (4.20-5.00); RDW 15.6 % (10.5-14.5); WBC 4.9 thou/uL (4.0-11.0)
[2018-02-12 17:23] VITALS: BP 134/62
[2018-02-12 17:45] VITALS: BP 136/61
[2018-02-13 04:49] VITALS: BP 132/59
[2018-02-13 05:05] LABS: CALCIUM 8.7 mg/dL (8.5-10.1)
[2018-02-13 05:09] LABS: POTASSIUM 3.4 mmol/L (3.5-5.1)
[2018-02-13 05:13] LABS: HEMATOCRIT 38.7 % (37.0-47.0); HEMOGLOBIN 12.9 gm/dL (12.0-15.0); MCH 30.4 pg (26.0-34.0); MCHC 33.2 g/dL (28.0-37.0); MCV 91.6 fL (80.0-100.0); RBC 4.23 mil/uL (4.20-5.00); RDW 15.6 % (10.5-14.5); WBC 3.5 thou/uL (4.0-11.0)
[2018-02-13 09:10] VITALS: BP 132/59
[2018-02-13 17:47] VITALS: BP 180/73
[2018-02-13 19:46] VITALS: BP 122/51
[2018-02-14] VITALS (8 sets, daily range): BP systolic 107–152; BP diastolic 46–76
[2018-02-14 06:46] LABS: HEMATOCRIT 39.8 % (37.0-47.0); HEMOGLOBIN 13.2 gm/dL (12.0-15.0); MCH 31.3 pg (26.0-34.0); MCHC 33.3 g/dL (28.0-37.0); MCV 94.1 fL (80.0-100.0); RBC 4.23 mil/uL (4.20-5.00); RDW 15.9 % (10.5-14.5); WBC 3.9 thou/uL (4.0-11.0)
[2018-02-14 07:08] LABS: CALCIUM 8.5 mg/dL (8.5-10.1); CREATININE 0.8 mg/dL (0.6-1.0)
[2018-02-14 07:14] LABS: POTASSIUM 3.9 mmol/L (3.5-5.1)
[2018-02-14] MEDS ORDERED: MACROBID 100 M100 M2 PO (15:33)
== END 2018-02-14 18:11 | disposition home health service (06) | DRG 871 ==
LOC: ER 12:52 → 4E 17:19 → EROBS 17:19 → 4E 18:20
PROVIDERS: Hospitalist; Physician Assistant
DX: A41.9 Sepsis, unspecified organism (principal); E43 Unspecified severe protein-calorie malnutrition; N39.0 Urinary tract infection, site not specified; E87.1 Hypo-osmolality and hyponatremia; M06.9 Rheumatoid arthritis, unspecified; F32.9 Major depressive disorder, single episode, unspecified; E78.5 Hyperlipidemia, unspecified; G89.29 Other chronic pain; F41.9 Anxiety disorder, unspecified; M54.9 Dorsalgia, unspecified; G62.9 Polyneuropathy, unspecified; Z90.710 Acquired absence of both cervix and uterus; Z90.49 Acquired absence of other specified parts of digestive tract; Z88.6 Allergy status to analgesic agent; Z88.8 Allergy status to other drugs, medicaments and biological substances; Z87.11 Personal history of peptic ulcer disease; Z79.899 Other long term (current) drug therapy
CPT/HCPCS: 10084

== ENCOUNTER 2018-02-20 12:46 | Inpatient (IN) | payer OTHER, MEDICARE ==
[~2018-02-20] VITALS: Ht 144.8 cm; Wt 77.1 kg
--- NOTE | ~2018-02-20 | HC ---
[facility] [place] [address] CONSULTATION Name: DALE DAO Room #: 427-P ADM IN M.R.#: [id number] Admission: 02/20/18 Attend Phys: Marcial Vazquez MD Discharge: Date of : 35 Report #: [id number] THIS REPORT FOR: //name// CC: Marcial PIMENTEL PCP DATE OF SERVICE: 02/21/2018 TYPE OF REPORT: Infectious diseases consultation. REASON FOR CONSULTATION: Multidrug resistant urinary tract infection. HISTORY OF PRESENT ILLNESS: The patient was an 82-year old who has been hospitalized several times over the last year. Most recently discharged about a week ago after her diagnosis of cystitis due to multidrug resistant E. coli. Initially treated with Zosyn and discharged on nitrofurantoin. Following discharge, she developed increased nausea with abdominal pain and some vomiting. She has chronic loose stools. There was no worsening of her stool output. Moderate dysuria. No hematuria. No flank pain or back pain. Denies any fever, chills or sweats. She has been treated for a yeast vaginitis with fluconazole. Following completion of Macrobid, she was to return to her standard prophylaxis with trimethoprim. She reports her pain up to a level of 4, improves with narcotics. She has been seen by Dr. Mckeon from the Urology service who initially had her in and out catheterization program. This has been discontinued. I do not know the extent of her bladder dysfunction at this point. She also has a history of IBS, diverticulitis, esophagitis and recurring episodes of nausea. She has been evaluated extensively by GI Service. She has had a previous cholecystectomy within the past year with no improvement in her symptoms. REVIEW OF SYSTEMS: CONSTITUTIONAL: As noted above with no fever, chills, sweats or weight loss. SKIN: Negative. LYMPHATIC: Negative. PULMONARY: Negative. CARDIOVASCULAR: Negative. GASTROINTESTINAL: As above. GENITOURINARY: As above. NEUROLOGICAL: Negative. PSYCHIATRIC: Negative. HEMATOLOGIC: Negative. ALLERGY: Negative. PAST MEDICAL HISTORY: Rheumatoid arthritis, depression, peripheral neuropathy, tonsillectomy, appendectomy, hysterectomy, cholecystectomy and lumbar [facility] [address] [place] [address] CONSULTATION Name: DALE DAO Room #: 427-P [facility] IN [facility]#: [id number] Admission: 02/20/18 Attend Phys: Marcial Vazquez MD Discharge: Date of : 35 Report #: [id number] laminectomy. She had C. difficile colitis and VRE infection. MEDICATIONS: As noted on her JUN, now on meropenem. She has been on no immunosuppression for her rheumatoid arthritis. ALLERGIES: ASPIRIN, CHOCOLATE, CODEINE, HONEY, TUNA and WHITE PEPPER. FAMILY HISTORY: Noncontributory. SOCIAL HISTORY: Nonsmoker. No significant alcohol intake. No travel. No HIV risk factors or tuberculosis exposure. PHYSICAL EXAMINATION: VITAL SIGNS: Afebrile and hemodynamically stable. GENERAL: The patient was sitting up in her chair, in no acute distress. She was alert, well-nourished, pale, appeared her stated age. HEENT: Eyes without conjunctivitis or scleral icterus. Mouth without lesion. Oral mucositis. NECK: Supple with no thyromegaly, masses or JVD. LUNGS: Clear to auscultation without any adventitial sounds. Chest with no tenderness or lesion. HEART: Regular, without murmur, gallop or rub. ABDOMEN: Soft, was diffusely tender, mostly in the suprapubic region and left lower quadrant area. She was obese. No hepatosplenomegaly or mass appreciated. BACK: Spine unremarkable with no percussion tenderness. No CVA tenderness. EXTREMITIES: No peripheral edema or cyanosis. NEUROLOGICAL: Cranial nerves intact with equal strength bilaterally, both upper and lower extremities. Sensation to her distal extremities, hands and feet normal. SKIN: Without lesion or rash. LYMPHATIC: No palpable adenopathy. Mood normal with no anxiety or depression. LABORATORY STUDIES: Hemoglobin 11.4; WBC 4.5 and platelet count 195,000. Sodium 138, potassium 3.2, bicarbonate 28 and creatinine 0.9. Liver function tests normal. Urinalysis was unremarkable. Review of her urinalysis from 02/12/2018, she had few wbc's, many bacteria with urine culture showing E. coli sensitive to amikacin, meropenem and tigecycline. Further report was not available on the record. RADIOLOGICAL DATA: CT scan of the abdomen on 02/12/2018 did show basilar atelectasis, atrophic pancreas, hepatic steatosis, diverticulosis and lumbar fusion. She had no evidence of bladder wall thickening or upper urinary tract findings. IMPRESSION: [facility] [address] [facility] [place] [address] CONSULTATION Name: DALE DAO Room #: 427-[facility] IN M.R.#: [id number] Admission: 02/20/18 Attend Phys: Marcial Vazquez MD Discharge: Date of : 35 Report #: [id number] 1. An 82-year old with symptoms of dysuria, abdominal pain, chronic loose stools, nausea and vomiting. Has a history of irritable bowel syndrome, gastroesophageal reflux and diverticular disease. In the past, she has had issues with incomplete emptying. Recurring cystitis, has been on treatment with trimethoprim. Now, has evidence of multidrug resistant Escherichia coli involvement of the bladder. It is still unclear whether her presenting symptoms are more related to her gastrointestinal disease more than urinary tract. I was unimpressed with her urinalysis. She has diffuse abdominal tenderness. No costovertebral angle tenderness or findings of upper tract disease. Therefore, I would conclude most of her issues are gastrointestinal related. In addition, she has underlying rheumatoid arthritis and fibromyalgia syndrome. RECOMMENDATIONS: Recommend discontinuation of her antibiotics. Check postvoid residual. May need followup Urology evaluation. Monitor her stool output. Treat with antinausea medication as well as antacid therapy. Continue treatment for irritable bowel syndrome. By: 1135 Lamont Clifford MD /nt
--- NOTE | ~2018-02-20 | EKG ---
[address] [place] [address] ELECTROCARDIOGRAM REPORT Name: DALE DAO Room #: 427-P ADM IN M.R.#: [id number] Admission: 02/20/18 Attend Phys: Marcial Vazquez MD Discharge: Date of : 35 Report #: [id number] THIS REPORT FOR: //name// [facility] ED Test Date: 2018-02-20 Test Time: 14:18:46 Pat Name: DALE DAO Department: Room: [facility] Gender: F Laminator: [place] : 1935 Requested By: Akua Chavez Order Number: [id number] MD: Declan Woo Measurements Intervals [place] Rate: 76 P: 5 [place]: 315 QRS: -57 QRSD: 135 T: 11 QT: 435 QTc: 490 Interpretive Statements Sinus rhythm Prolonged [place] interval IVCD, consider atypical RBBB Inferior infarct, old Compared to ECG 02/12/2018 13:37:36 No significant changes Electronically Signed On 02-21-2018 8:54:18 CDT by Declan Woo [email or web address] <ELECTRONICALLY SIGNED> By: Declan Woo MD, [facility] 02/21/18 0854 1418 1418 Declan Woo MD, [facility] /EPI
[2018-02-20 13:08] VITALS: BP 173/64
[2018-02-20 14:47] LABS: ANION GAP 10 mmol/L (7-16); BUN 7 mg/dL (7-18); CALCIUM 9.5 mg/dL (8.5-10.1); CHLORIDE 101 mmol/L (98-107); CO2 25 mmol/L (21-32); CREATININE 0.9 mg/dL (0.6-1.0); GLUCOSE 114 mg/dL (74-106); POTASSIUM 4.1 mmol/L (3.5-5.1); SODIUM 136 mmol/L (136-145)
[2018-02-20 14:57] LABS: ALBUMIN 3.6 g/dL (3.4-5.0); LIPASE 65 U/L (73-393); SGOT 24 U/L (15-37); SGPT 15 U/L (30-65); TOTAL BILIRUBIN 0.4 mg/dL (<0.1-1.0); TOTAL PROTEIN 7.2 g/dL (6.4-8.2); TROPONIN-I <0.06 ng/mL (<0.06)
[2018-02-20 16:28] LABS: ABSOLUTE NEUTROPHILS 3.7 thou/uL (1.4-8.2); BASOPHILS 0.6 % (0.0-2.0); EOSINOPHILS 0.5 % (0.0-3.0); HEMATOCRIT 36.4 % (37.0-47.0); HEMOGLOBIN 12.1 gm/dL (12.0-15.0); LYMPHOCYTES 18.3 % (24.0-44.0); MCHC 33.1 g/dL (28.0-37.0); MCV 90.7 fL (80.0-100.0); MONOCYTES 5.9 % (1.0-8.0); PLATELET COUNT 211 thou/uL (150-400); POLYS 74.7 % (36.0-66.0); RBC 4.01 mil/uL (4.20-5.00); WBC 4.9 thou/uL (4.0-11.0)
[2018-02-20 16:31] LABS: URINE BILIRUBIN NEGATIVE (Negative); URINE BLOOD NEGATIVE (Negative); URINE CLARITY CLEAR; URINE COLOR YELLOW; URINE GLUCOSE-RANDOM* NEGATIVE (Negative); URINE KETONES TRACE (Negative); URINE LEUKOCYTES-REFLEX NEGATIVE (Negative); URINE PROTEIN (DIPSTICK) NEGATIVE (Negative); URINE UROBILINOGEN 0.2 E.U./dl (0.2-1.0)
[2018-02-20 16:34] LABS: URINE NITRITE-REFLEX POSITIVE (Negative)
[2018-02-20 16:40] LABS: BACTERIA-REFLEX 1-9 Few /HPF (None Seen); CASTS None Seen /LPF (None Seen); CRYSTALS None Seen /LPF (None Seen); SQUAMOUS 0-3 Few /LPF (0-3); URINE RBC None Seen /HPF (0-2); URINE WBC-REFLEX None Seen /HPF (0-5)
[2018-02-20 18:27] VITALS: BP 173/64
[2018-02-20] MEDS ORDERED: DIFLUCAN150 MG PO (18:34)
[2018-02-20 19:30] VITALS: BP 164/44
[2018-02-20 19:58] VITALS: BP 170/67
[2018-02-20 21:20] VITALS: BP 170/67
[2018-02-21 03:51] VITALS: BP 152/60
[2018-02-21 04:37] LABS: HEMATOCRIT 32.5 % (37.0-47.0); HEMOGLOBIN 11.4 gm/dL (12.0-15.0); MCH 31.8 pg (26.0-34.0); MCHC 34.9 g/dL (28.0-37.0); MCV 90.9 fL (80.0-100.0); PLATELET COUNT 195 thou/uL (150-400); RBC 3.58 mil/uL (4.20-5.00); RDW 15.2 % (10.5-14.5); WBC 4.5 thou/uL (4.0-11.0)
[2018-02-21 04:38] LABS: CREATININE 0.9 mg/dL (0.6-1.0); MAGNESIUM 1.7 mg/dL (1.8-2.4); POTASSIUM 3.2 mmol/L (3.5-5.1)
[2018-02-21 05:35] LABS: ABSOLUTE NEUTROPHILS 2.3 thou/uL (1.4-8.2); ATYPICAL LYMPHS 4 %
[2018-02-21 11:08] VITALS: BP 152/60
[2018-02-21 16:16] VITALS: BP 149/73
[2018-02-21 20:03] VITALS: BP 153/64
[2018-02-22 04:14] VITALS: BP 123/92
[2018-02-22 07:54] VITALS: BP 144/61
[2018-02-22 09:09] LABS: CALCIUM 9.3 mg/dL (8.5-10.1); MAGNESIUM 1.9 mg/dL (1.8-2.4); POTASSIUM 4.6 mmol/L (3.5-5.1)
[2018-02-22 10:45] VITALS: BP 144/61
[2018-02-22] MEDS ORDERED: PROLOPRIM100 MG PO (12:53)
[2018-02-22 13:13] VITALS: BP 144/61
[2018-02-22 14:05] VITALS: BP 144/61
[2018-02-22 14:28] VITALS: BP 144/61
== END 2018-02-22 14:30 | disposition home or self-care (01) | DRG 689 ==
LOC: ER 12:46 → EROBS 17:32 → 4E 17:32
PROVIDERS: Internal Medicine; Nurse Practitioner; Nurse Practitioner Family
PROC: 05HC33Z Insertion of Infusion Device into Left Basilic Vein, Percutaneous Approach (ICD-10-PCS; principal; 2018-02-20)
DX: N39.0 Urinary tract infection, site not specified (principal); E43 Unspecified severe protein-calorie malnutrition; B37.3 Candidiasis of vulva and vagina; M06.9 Rheumatoid arthritis, unspecified; K58.9 Irritable bowel syndrome, unspecified; F32.9 Major depressive disorder, single episode, unspecified; G62.9 Polyneuropathy, unspecified; G89.29 Other chronic pain; R10.9 Unspecified abdominal pain; Z16.24 Resistance to multiple antibiotics; K21.9 Gastro-esophageal reflux disease without esophagitis; M54.9 Dorsalgia, unspecified; Z66 Do not resuscitate; F41.9 Anxiety disorder, unspecified; E78.5 Hyperlipidemia, unspecified; E87.6 Hypokalemia; E83.42 Hypomagnesemia; N18.3 Chronic kidney disease, stage 3 (moderate); Z90.49 Acquired absence of other specified parts of digestive tract; Z90.710 Acquired absence of both cervix and uterus; Z88.8 Allergy status to other drugs, medicaments and biological substances; Z88.6 Allergy status to analgesic agent; Z87.11 Personal history of peptic ulcer disease; Z91.02 Food additives allergy status
CPT/HCPCS: 10084; 27000

== ENCOUNTER 2018-02-25 15:43 | Inpatient (IN) | payer OTHER, MEDICARE ==
[~2018-02-25] VITALS: Ht 144.8 cm; Wt 81.0 kg
--- NOTE | ~2018-02-25 | EKG ---
[address] [place] [address] ELECTROCARDIOGRAM REPORT Name: DALE DAO Room #: 418-P ADM IN M.R.#: [id number] Admission: 02/25/18 Attend Phys: Janak Ling MD Discharge: Date of : 35 Report #: [id number] THIS REPORT FOR: //name// [facility] ED Test Date: 2018-02-25 Test Time: 17:57:52 Pat Name: DALE DAO Department: Room: [facility] Gender: F Tower Crane Operator: COLT : 1935 Requested By: Earl Abraham Order Number: [id number] MD: Declan Woo Measurements Intervals [place] Rate: 80 P: 46 WV: 292 QRS: -62 QRSD: 137 T: 13 QT: 441 QTc: 509 Interpretive Statements Sinus rhythm Prolonged [place] interval Right bundle branch block Inferior infarct, old Baseline wander in lead(s) V1,V2 Compared to ECG 02/20/2018 14:18:46 No significant change was found Electronically Signed On 02-26-2018 7:55:27 ROPE MAKING MACHINE OPERATOR by Declan Woo [email or web address] <ELECTRONICALLY SIGNED> By: Declan Woo MD, [facility] 02/26/18 0755 1757 1757 Declan Woo MD, [facility] /EPI
[~2018-02-25 15:43] MED LIST changes: +DIFLUCAN150 MG PO
[2018-02-25 16:03] VITALS: BP 175/97
[2018-02-25 16:08] LABS: URINE BILIRUBIN NEGATIVE (Negative); URINE BLOOD TRACE (Negative); URINE CLARITY CLEAR; URINE COLOR YELLOW; URINE GLUCOSE-RANDOM* NEGATIVE (Negative); URINE KETONES NEGATIVE (Negative); URINE LEUKOCYTES-REFLEX NEGATIVE (Negative); URINE NITRITE-REFLEX NEGATIVE (Negative); URINE PROTEIN (DIPSTICK) NEGATIVE (Negative); URINE UROBILINOGEN 0.2 E.U./dl (0.2-1.0)
[2018-02-25 16:27] LABS: ABSOLUTE NEUTROPHILS 3.2 thou/uL (1.4-8.2); BASOPHILS 0.5 % (0.0-2.0); HEMATOCRIT 37.4 % (37.0-47.0); HEMOGLOBIN 12.7 gm/dL (12.0-15.0); LYMPHOCYTES 22.7 % (24.0-44.0); MCH 30.8 pg (26.0-34.0); MCV 90.5 fL (80.0-100.0); PLATELET COUNT 223 thou/uL (150-400); POLYS 65.8 % (36.0-66.0); RBC 4.13 mil/uL (4.20-5.00); RDW 15.2 % (10.5-14.5); WBC 4.9 thou/uL (4.0-11.0)
[2018-02-25 16:37] LABS: CALCIUM 9.4 mg/dL (8.5-10.1); CREATININE 0.8 mg/dL (0.6-1.0)
[2018-02-25 16:42] LABS: POTASSIUM 5.5 mmol/L (3.5-5.1)
[2018-02-25 16:43] LABS: ALBUMIN 3.7 g/dL (3.4-5.0); TOTAL BILIRUBIN 0.4 mg/dL (<0.1-1.0); TOTAL PROTEIN 7.4 g/dL (6.4-8.2)
[2018-02-25 21:36] VITALS: BP 148/71
[2018-02-25 22:03] VITALS: BP 162/78
[2018-02-26 04:14] VITALS: BP 120/50
[2018-02-26 05:59] LABS: ANION GAP 9 mmol/L (7-16); BUN 8 mg/dL (7-18); CALCIUM 8.5 mg/dL (8.5-10.1); CHLORIDE 102 mmol/L (98-107); CHOLESTEROL 232 mg/dL (<200); CO2 26 mmol/L (21-32); CREATININE 0.8 mg/dL (0.6-1.0); GLUCOSE 101 mg/dL (74-106); HDL CHOLESTEROL 60 mg/dL (>40); LDL CHOLESTEROL 149 mg/dL (<100); POTASSIUM 3.5 mmol/L (3.5-5.1); SODIUM 137 mmol/L (136-145); TC:HDL 3.9 Ratio (Not establshd); TRIGLYCERIDE 116 mg/dL (<150); VLDL 23 mg/dL (<40)
[2018-02-26 06:04] LABS: SERUM ASSESSMENT Clear
[2018-02-26 07:37] VITALS: BP 94/57
[2018-02-26 19:26] VITALS: BP 123/100
[2018-02-27 03:29] VITALS: BP 154/61
[2018-02-27 07:10] VITALS: BP 149/59
[2018-02-27] MEDS ORDERED: PROLOPRIM100 MG PO (13:32)
[2018-02-27] MEDS ORDERED: PROTONIX40 M1 PO (13:32)
[2018-02-27] MEDS ORDERED: LOPERAMIDE 2 MG2 MG PO (13:37)
[2018-02-27] MEDS ORDERED: ONDANSETRON HCL4 M2 PO (13:37)
[2018-02-27] MEDS ORDERED: DIFLUCAN150 MG PO (13:44)
[2018-02-27] MEDS ORDERED: VOLTAREN GEL 1100 G2 TOP (14:07)
[2018-02-27] MEDS ORDERED: PROBIOTIC1 EAC1 PO (14:07)
[2018-02-27 14:39] VITALS: BP 149/59
== END 2018-02-27 15:25 | disposition home or self-care (01) | DRG 392 ==
LOC: ER 15:43 → EROBS 20:54 → 4E 20:54 → ENTRNSPT 02-27 15:13 → 4E 02-27 15:25
PROVIDERS: Nurse Practitioner; Nurse Practitioner Family; Physician Assistant
DX: K58.9 Irritable bowel syndrome, unspecified (principal); Z66 Do not resuscitate; M06.9 Rheumatoid arthritis, unspecified; F32.9 Major depressive disorder, single episode, unspecified; K57.90 Diverticulosis of intestine, part unspecified, without perforation or abscess without bleeding; G89.29 Other chronic pain; M54.9 Dorsalgia, unspecified; G62.9 Polyneuropathy, unspecified; E78.5 Hyperlipidemia, unspecified; F41.9 Anxiety disorder, unspecified; Z90.710 Acquired absence of both cervix and uterus; Z90.49 Acquired absence of other specified parts of digestive tract; Z87.11 Personal history of peptic ulcer disease; Z79.899 Other long term (current) drug therapy; Z88.6 Allergy status to analgesic agent; Z88.5 Allergy status to narcotic agent; Z91.013 Allergy to seafood; Z91.018 Allergy to other foods
CPT/HCPCS: 10084; 27000

== ENCOUNTER 2018-03-07 09:05 | Emergency (ER) | payer OTHER, MEDICARE ==
[~2018-03-07] VITALS: Ht 147.3 cm; Wt 77.1 kg
--- NOTE | ~2018-03-07 | EKG ---
[place] [address] [employer] [place] [address] ELECTROCARDIOGRAM REPORT Name: DALE DAO [facility] [id number] Admission: 03/07/18 Attend Phys: Discharge: Date of : 35 Report #: [id number] THIS REPORT FOR: //name// [facility] ED Test Date: 2018-03-07 Test Time: 10:08:25 Pat Name: DALE DAO Department: Room: Gender: F [employer] Director: : 1935 Requested By: Lamont Matute Order Number: [id number] MD: Gage Alfaro Measurements Intervals [place] Rate: 70 P: 1 TN: 294 QRS: -47 QRSD: 89 T: 6 QT: 433 QTc: 468 Interpretive Statements Sinus rhythm Prolonged [place] interval Right bundle branch block Inferior infarct age indeterminate Compared to ECG 02/25/2018 17:57:52 No significant changes Electronically Signed On 03-07-2018 10:20:46 RIBBON WINDER by Gage Alfaro [email or web address] <ELECTRONICALLY SIGNED> By: Gage Alfaro MD 03/07/18 1020 1008 07 Gage Alfaro MD /VIKA
[~2018-03-07 09:05] MED LIST changes: +LOPERAMIDE 2 MG2 MG PO; +ONDANSETRON HCL4 M2 PO; +PROBIOTIC1 EAC1 PO; +PROTONIX40 M1 PO
[2018-03-07 09:47] LABS: URINE BILIRUBIN NEGATIVE (Negative); URINE BLOOD TRACE (Negative); URINE CLARITY CLOUDY; URINE COLOR YELLOW; URINE GLUCOSE-RANDOM* NEGATIVE (Negative); URINE KETONES NEGATIVE (Negative); URINE PROTEIN (DIPSTICK) NEGATIVE (Negative); URINE UROBILINOGEN 0.2 E.U./dl (0.2-1.0)
[2018-03-07 09:48] LABS: URINE LEUKOCYTES-REFLEX 3+ (Negative); URINE NITRITE-REFLEX POSITIVE (Negative)
[2018-03-07 09:54] LABS: BACTERIA-REFLEX >30 Many /HPF (None Seen); CASTS None Seen /LPF (None Seen); CRYSTALS None Seen /LPF (None Seen); SQUAMOUS 0-3 Few /LPF (0-3); URINE RBC 0-2 Rare /HPF (0-2); URINE WBC-REFLEX >25 Many /HPF (0-5)
[2018-03-07 10:44] LABS: ANION GAP 8 mmol/L (7-16); BUN 8 mg/dL (7-18); CALCIUM 9.1 mg/dL (8.5-10.1); CHLORIDE 103 mmol/L (98-107); CO2 27 mmol/L (21-32); GLUCOSE 118 mg/dL (74-106); POTASSIUM 4.7 mmol/L (3.5-5.1); SODIUM 138 mmol/L (136-145)
[2018-03-07 10:54] LABS: ALBUMIN 3.7 g/dL (3.4-5.0); LIPASE 67 U/L (73-393); SGOT 28 U/L (15-37); SGPT 16 U/L (30-65); TOTAL BILIRUBIN 0.4 mg/dL (<0.1-1.0); TROPONIN-I <0.06 ng/mL (<0.06)
[2018-03-07] MEDS ORDERED: AUGMENTIN 500-1 EACH PO (10:58)
[2018-03-07 14:28] VITALS: BP 145/53
== END 2018-03-07 14:29 | disposition home or self-care (01) ==
LOC: ER 09:05
PROVIDERS: Emergency Medicine
DX: N39.0 Urinary tract infection, site not specified (principal); K58.9 Irritable bowel syndrome, unspecified; G89.29 Other chronic pain; E78.5 Hyperlipidemia, unspecified; M54.9 Dorsalgia, unspecified; M06.9 Rheumatoid arthritis, unspecified; F32.9 Major depressive disorder, single episode, unspecified; F41.9 Anxiety disorder, unspecified; G62.9 Polyneuropathy, unspecified; Z90.89 Acquired absence of other organs; Z90.710 Acquired absence of both cervix and uterus; Z90.49 Acquired absence of other specified parts of digestive tract; Z88.6 Allergy status to analgesic agent; Z91.018 Allergy to other foods; Z88.5 Allergy status to narcotic agent

== ENCOUNTER 2018-04-11 09:51 | Emergency (ER) | payer OTHER, MEDICARE ==
[~2018-04-11] VITALS: Ht 144.8 cm; Wt 76.7 kg
--- NOTE | ~2018-04-11 | EKG ---
[address] [address] ELECTROCARDIOGRAM REPORT Name: DALE DAO Room #: DEP [facility]#: [id number] Admission: 04/11/18 Attend Phys: Discharge: 04/11/18 Date of : 35 Report #: [id number] THIS REPORT FOR: //name// [facility] ED Test Date: 2018-04-11 Test Time: 10:11:14 Pat Name: DALE DAO Department: Room: Gender: F Service Car Driver: renetta : 1935 Requested By: Earl Abraham Order Number: [id number] MD: Jon Summers Measurements Intervals [place] Rate: 80 P: 12 WV: 281 QRS: -56 QRSD: 134 T: 19 QT: 422 QTc: 487 Interpretive Statements Sinus rhythm Prolonged [place] interval Right bundle branch block Left ventricular hypertrophy Inferior infarct, old Compared to ECG 03/07/2018 10:08:25 Left ventricular hypertrophy now present Myocardial infarct finding still present Electronically Signed On 04-11-2018 20:10:57 FUR STRETCHER by Jon Summers [email or web address] <ELECTRONICALLY SIGNED> By: Jon Summers MD 04/11/182009 101 101 Jon Summers MD /EPI
[~2018-04-11 09:51] MED LIST changes: +AUGMENTIN 500-1 EACH PO
[2018-04-11 10:13] LABS: URINE BILIRUBIN NEGATIVE (Negative); URINE BLOOD NEGATIVE (Negative); URINE CLARITY CLEAR; URINE COLOR YELLOW; URINE GLUCOSE-RANDOM* NEGATIVE (Negative); URINE KETONES NEGATIVE (Negative); URINE PROTEIN (DIPSTICK) NEGATIVE (Negative); URINE SPECIFIC GRAVITY 1.015 (1.005-1.035); URINE UROBILINOGEN 0.2 E.U./dl (0.2-1.0)
[2018-04-11 10:14] LABS: URINE LEUKOCYTES-REFLEX 1+ (Negative); URINE NITRITE-REFLEX POSITIVE (Negative)
[2018-04-11 10:25] LABS: BACTERIA-REFLEX >30 Many /HPF (None Seen); CASTS None Seen /LPF (None Seen); CRYSTALS None Seen /LPF (None Seen); SQUAMOUS 0-3 Few /LPF (0-3); URINE RBC None Seen /HPF (0-2)
[2018-04-11 12:29] LABS: ABSOLUTE NEUTROPHILS 2.7 thou/uL (1.4-8.2); BASOPHILS 0.8 % (0.0-2.0); EOSINOPHILS 0.5 % (0.0-3.0); HEMATOCRIT 38.7 % (37.0-47.0); HEMOGLOBIN 12.8 gm/dL (12.0-15.0); LYMPHOCYTES 23.2 % (24.0-44.0); MCH 30.1 pg (26.0-34.0); MCHC 33.1 g/dL (28.0-37.0); MCV 90.8 fL (80.0-100.0); MONOCYTES 8.9 % (1.0-8.0); PLATELET COUNT 191 thou/uL (150-400); POLYS 66.6 % (36.0-66.0); RBC 4.26 mil/uL (4.20-5.00); RDW 14.8 % (10.5-14.5)
[2018-04-11 12:48] LABS: ANION GAP 14 mmol/L (7-16); BUN 11 mg/dL (7-18); CALCIUM 9.2 mg/dL (8.5-10.1); CHLORIDE 100 mmol/L (98-107); CO2 21 mmol/L (21-32); GLUCOSE 112 mg/dL (74-106); LIPASE 80 U/L (73-393); POTASSIUM 4.8 mmol/L (3.5-5.1); SODIUM 135 mmol/L (136-145); TROPONIN-I <0.06 ng/mL (<0.06)
[2018-04-11 13:01] LABS: TOTAL BILIRUBIN 0.4 mg/dL (<0.1-1.0); TOTAL PROTEIN 7.4 g/dL (6.4-8.2)
[2018-04-11 13:13] LABS: SGOT 26 U/L (15-37); SGPT 16 U/L (30-65)
[2018-04-11 13:23] LABS: ALBUMIN 3.9 g/dL (3.4-5.0)
[2018-04-11] MEDS ORDERED: MACROBID 100 M100 M1 PO (14:16)
[2018-04-11] MEDS ORDERED: PROMS25 WY RECTAL (14:16)
[2018-04-11 14:23] VITALS: BP 151/66
== END 2018-04-11 14:36 | disposition home or self-care (01) ==
LOC: ER 09:51
PROVIDERS: Physician Assistant
DX: N39.0 Urinary tract infection, site not specified (principal); G89.29 Other chronic pain; R10.84 Generalized abdominal pain; R11.0 Nausea; M54.9 Dorsalgia, unspecified; M06.9 Rheumatoid arthritis, unspecified; F32.9 Major depressive disorder, single episode, unspecified; F41.9 Anxiety disorder, unspecified; K58.9 Irritable bowel syndrome, unspecified; E78.5 Hyperlipidemia, unspecified; G62.9 Polyneuropathy, unspecified; Z90.89 Acquired absence of other organs; Z90.49 Acquired absence of other specified parts of digestive tract; Z88.6 Allergy status to analgesic agent; Z91.018 Allergy to other foods; Z88.5 Allergy status to narcotic agent; Z90.710 Acquired absence of both cervix and uterus; Z98.890 Other specified postprocedural states

== ENCOUNTER 2018-05-15 08:23 | Emergency (ER) | payer OTHER, MEDICARE ==
[~2018-05-15] VITALS: Ht 147.3 cm; Wt 77.1 kg
[2018-05-15 10:11] LABS: ABSOLUTE NEUTROPHILS 4.4 thou/uL (1.4-8.2); BASOPHILS 0.1 % (0.0-2.0); EOSINOPHILS 0.7 % (0.0-3.0); HEMOGLOBIN 12.8 gm/dL (12.0-15.0); LYMPHOCYTES 12.9 % (24.0-44.0); MCHC 33.7 g/dL (28.0-37.0); MCV 89.1 fL (80.0-100.0); MONOCYTES 7.1 % (1.0-8.0); PLATELET COUNT 212 thou/uL (150-400); POLYS 79.2 % (36.0-66.0); RBC 4.26 mil/uL (4.20-5.00); WBC 5.6 thou/uL (4.0-11.0)
[2018-05-15 10:24] LABS: CALCIUM 9.6 mg/dL (8.5-10.1); POTASSIUM 3.7 mmol/L (3.5-5.1)
[2018-05-15 10:31] LABS: TOTAL BILIRUBIN 0.3 mg/dL (<0.1-1.0); TOTAL PROTEIN 7.3 g/dL (6.4-8.2)
[2018-05-15 12:04] LABS: URINE CLARITY CLEAR; URINE COLOR YELLOW
[2018-05-15 12:05] LABS: URINE BILIRUBIN NEGATIVE (Negative); URINE BLOOD NEGATIVE (Negative); URINE GLUCOSE-RANDOM* NEGATIVE (Negative); URINE KETONES NEGATIVE (Negative); URINE LEUKOCYTES-REFLEX NEGATIVE (Negative); URINE NITRITE-REFLEX POSITIVE (Negative); URINE PROTEIN (DIPSTICK) NEGATIVE (Negative); URINE UROBILINOGEN 0.2 E.U./dl (0.2-1.0)
[2018-05-15 12:11] LABS: BACTERIA-REFLEX >30 Many /HPF (None Seen); CASTS None Seen /LPF (None Seen); CRYSTALS None Seen /LPF (None Seen); SQUAMOUS 0-3 Few /LPF (0-3); URINE RBC 0-2 Rare /HPF (0-2); URINE WBC-REFLEX 0-5 Rare /HPF (0-5)
[2018-05-15 12:34] VITALS: BP 135/49
[2018-05-15] MEDS ORDERED: ZOFRAN 4 MG ORAL4 MG PO (13:06)
== END 2018-05-15 12:35 | disposition home or self-care (01) ==
LOC: ER 08:23
PROVIDERS: Emergency Medicine
DX: K52.9 Noninfective gastroenteritis and colitis, unspecified (principal); E78.5 Hyperlipidemia, unspecified; G89.29 Other chronic pain; M54.9 Dorsalgia, unspecified; M06.9 Rheumatoid arthritis, unspecified; F32.9 Major depressive disorder, single episode, unspecified; F41.9 Anxiety disorder, unspecified; G62.9 Polyneuropathy, unspecified; Z88.6 Allergy status to analgesic agent; Z88.5 Allergy status to narcotic agent; Z91.018 Allergy to other foods; Z90.710 Acquired absence of both cervix and uterus; Z98.890 Other specified postprocedural states; Z90.49 Acquired absence of other specified parts of digestive tract; Z87.440 Personal history of urinary (tract) infections

== ENCOUNTER 2019-07-13 10:52 | Inpatient (IN) | payer OTHER, MEDICARE ==
[~2019-07-13] VITALS: Ht 144.8 cm; Wt 65.3 kg
--- NOTE | ~2019-07-13 | EMS ---
[place] [id number] EMS Patient Care Report Name: DALE DAO Room #: 170-6 ADM IN M.R.#: [id number] Admission: 07/13/19 Attend Phys: Todd Johnson MD Discharge: Date of : 35 Report #: [id number] THIS REPORT FOR: //name// Report Transmitted: 07/13/2019 12:04 EMS Care Summary [place], [place]/[facility] Incident [id number] @ 07/13/2019 10:21 Incident Location [address] [place] [address] Patient DALE DAO Female, 83 Years 1935 Patient Address [address] [place] [address] Patient History Other,Hypertension (HTN),Hyperlipidemia,Irritable Bowel Syndrome,Diverticulitis,Depression,Anxiety,Hysterectomy,Appendectomy, Patient Allergies Aspirin,Codeine, Patient Medications Promethazine, Sertraline, Klor-Con, Mirapex, Omeprazole, Remeron, Bentyl, Potassium, Voltaren, Xanax, Lyrica, Amlodipine, Compazine, Premarin, Simvastatin, Chief Complaint ABDOMINAL PAIN/ VOMITING Disposition Transported No Lights/[place] Dispatch Reason Sick Person Transported To [facility] Narrative DISPATCHED TO A SICK. ARRIVED ON SCENE TO FIND FEMALE [place] [address] EMS Patient Care Report Name: DALE DAO Room #: 170-[address] [facility].#: [id number] Admission: 07/13/19 Attend Phys: Todd Johnson MD Discharge: Date of : 35 Report #: [id number] THE FRONT DOOR ON A CHAIR. PATIENT SAID THAT HER LOWER ABDOMEN HAS BEEN HURTING FOR THREE DAYS. THE PAIN HAS WORSENED IN THE LAST DAY, AND SHE SAID SHE HAD VOMITED A YELLOW/ CLEAR FOAMY LIQUID THREE TIMES THIS MORNING. SHE DENIED CHEST PAIN AND DIFFICULTY BREATHING. PATIENT WAS ASSISTED IN STANDING AND SITTING ON THE COT, COVERED, SECURED WITH STRAPS, AND MOVED TO THE AMBULANCE. PATIENT'S VITALS WERE OBTAINED, AND SHE WAS TRANSPORTED TO THE HOSPITAL. VITALS WERE MONITORED ENROUTE. UPON ARRIVAL PATIENT WAS MOVED INTO ED ROOM 6 ON THE COT AND LIFTED OVER TO THE HOSPITAL BED. PATIENT CARE WAS TURNED OVER TO ED NURSING STAFF. Initial Vitals @10:41P: 77,R: 16,BP: 157/77,Pain: 6/10,GCS: 15,SpO2: 96,Revised Trauma: 12, @10:36P: 98,R: 16,BP: 142/98,Pain: 6/10,GCS: 15,Temp: 98.2F,Glucose: 137,SpO2: 98,Revised Trauma: 12, Assessments @10:32MENTAL:Person Oriented,Time Oriented,Place Oriented,Event Oriented,SKIN:HEENT:Head/Face: No Abnormalities,Neck/Airway: No Abnormalities,LUNG SOUNDS:General: Vomiting,Left Lower: Other,Right Lower: Other,ABDOMEN:General: Vomiting,Left Lower: Other,Right Lower: Other,PELVIS//GI:No Abnormalities,EXTREMITIES:Capillary Refill: Right Upper: < 2 Sec,Left Arm: No Abnormalities,Right Arm: No Abnormalities,Left Leg: No Abnormalities,Right Leg: No Abnormalities,PULSE:Radial: 2+ Normal,NEURO:No Abnormalities, Impression Abdominal Pain Timeline 10:18,Call Received 10:18,Dispatch Notified 10:21,Dispatched 10:21,En Route 10:30,On Scene 10:32,At Patient 10:36,BP: 142/98 M,PULSE: 98,RR: 16 R,SPO2: 98 Ox,ETCO2: ,B,PAIN: 6,GCS: 15, 10:40,Depart Scene 10:41,BP: 157/77 M,PULSE: 77,RR: 16 R,SPO2: 96 Ox,ETCO2: ,BG: ,PAIN: 6,GCS: 15, 10:48,At Destination 10:59,Call Closed Disclaimer v1.1 Copyright 2020 [employer] This EMS Care Summary contains data elements from the applicable legal record [facility] [address] [place] [address] EMS Patient Care Report Name: DALE DAO Room #: 170-6 ADM IN M.R.#: [id number] Admission: 07/13/19 Attend Phys: Todd Johnson MD Discharge: Date of : 35 Report #: [id number] (which may be displayed differently). It is designed to provide pertinent information for the following purposes: continuity of care, clinical quality, and state data reporting. The complete legal record is available to ED staff and administrators of the receiving hospital in [facility]'s Patient Tracker. All data is provided "as is."
--- NOTE | ~2019-07-13 | EMS ---
[place] [id number] EMS Patient Care Report Name: DALE DAO Room #: 219-P ADM IN M.R.#: [id number] Admission: 07/13/19 Attend Phys: Todd Johnson MD Discharge: Date of : 35 Report #: [id number] THIS REPORT FOR: //name// Report Transmitted: 07/13/2019 17:16 EMS Care Summary [place], [place]/[facility] Incident [id number] @ 07/13/2019 10:21 Incident Location [address] [place] [address] Patient DALE DAO Female, 83 Years 1935 Patient Address [address] [place] [address] Patient History Other,Hypertension (HTN),Hyperlipidemia,Irritable Bowel Syndrome,Diverticulitis,Depression,Anxiety,Hysterectomy,Appendectomy, Patient Allergies Aspirin,Codeine, Patient Medications Promethazine, Sertraline, Klor-Con, Mirapex, Omeprazole, Remeron, Bentyl, Potassium, Voltaren, Xanax, Lyrica, Amlodipine, Compazine, Premarin, Simvastatin, Chief Complaint ABDOMINAL PAIN/ VOMITING Disposition Transported No Lights/[place] Dispatch Reason Sick Person Transported To [facility] Narrative DISPATCHED TO A SICK. ARRIVED ON SCENE TO FIND FEMALE [place] [address] EMS Patient Care Report Name: DALE DAO Room #: 219-P [facility] IN ..#: [id number] Admission: 07/13/19 Attend Phys: Todd Johnson MD Discharge: Date of : 35 Report #: [id number] THE FRONT DOOR ON A CHAIR. PATIENT SAID THAT HER LOWER ABDOMEN HAS BEEN HURTING FOR THREE DAYS. THE PAIN HAS WORSENED IN THE LAST DAY, AND SHE SAID SHE HAD VOMITED A YELLOW/ CLEAR FOAMY LIQUID THREE TIMES THIS MORNING. SHE DENIED CHEST PAIN AND DIFFICULTY BREATHING. PATIENT WAS ASSISTED IN STANDING AND SITTING ON THE COT, COVERED, SECURED WITH STRAPS, AND MOVED TO THE AMBULANCE. PATIENT'S VITALS WERE OBTAINED, AND SHE WAS TRANSPORTED TO THE HOSPITAL. VITALS WERE MONITORED ENROUTE. UPON ARRIVAL PATIENT WAS MOVED INTO ED ROOM 6 ON THE COT AND LIFTED OVER TO THE HOSPITAL BED. PATIENT CARE WAS TURNED OVER TO ED NURSING STAFF. Initial Vitals @10:41P: 77,R: 16,BP: 157/77,Pain: 6/10,GCS: 15,SpO2: 96,Revised Trauma: 12, @10:36P: 98,R: 16,BP: 142/98,Pain: 6/10,GCS: 15,Temp: 98.2F,Glucose: 137,SpO2: 98,Revised Trauma: 12, Assessments @10:32MENTAL:Person Oriented,Time Oriented,Place Oriented,Event Oriented,SKIN:HEENT:Head/Face: No Abnormalities,Neck/Airway: No Abnormalities,LUNG SOUNDS:General: Vomiting,Left Lower: Other,Right Lower: Other,ABDOMEN:General: Vomiting,Left Lower: Other,Right Lower: Other,PELVIS//GI:No Abnormalities,EXTREMITIES:Capillary Refill: Right Upper: < 2 Sec,Left Arm: No Abnormalities,Right Arm: No Abnormalities,Left Leg: No Abnormalities,Right Leg: No Abnormalities,PULSE:Radial: 2+ Normal,NEURO:No Abnormalities, Impression Abdominal Pain Procedures @10:32ALS AssessmentResponse: UnchangedSucceeded Timeline 10:18,Call Received 10:18,Dispatch Notified 10:21,Dispatched 10:21,En Route 10:30,On Scene 10:32,At Patient 10:32,ALS Assessment,Response: UnchangedSucceeded, 10:36,BP: 142/98 M,PULSE: 98,RR: 16 R,SPO2: 98 Ox,ETCO2: ,B,PAIN: 6,GCS: 15, 10:40,Depart Scene 10:41,BP: 157/77 M,PULSE: 77,RR: 16 R,SPO2: 96 Ox,ETCO2: ,BG: ,PAIN: 6,GCS: 15, 10:48,At Destination 10:59,Call Closed [facility] [address] [place] [address] EMS Patient Care Report Name: DALE DAO Room #: 219-P ADM IN M.R.#: [id number] Admission: 07/13/19 Attend Phys: Todd Johnson MD Discharge: Date of : 35 Report #: [id number] Disclaimer v1.1 Copyright 2020 [employer] This EMS Care Summary contains data elements from the applicable legal record (which may be displayed differently). It is designed to provide pertinent information for the following purposes: continuity of care, clinical quality, and state data reporting. The complete legal record is available to ED staff and administrators of the receiving hospital in [email or web address]'s Patient Tracker. All data is provided "as is."
[~2019-07-13 10:52] MED LIST changes: +ZOFRAN 4 MG ORAL4 MG PO
[2019-07-13 10:54] VITALS: BP 145/73
[2019-07-13 11:27] LABS: URINE BILIRUBIN NEGATIVE (Negative); URINE BLOOD TRACE (Negative); URINE CLARITY CLEAR; URINE COLOR YELLOW; URINE GLUCOSE-RANDOM* NEGATIVE (Negative); URINE KETONES 2+ (Negative); URINE PROTEIN (DIPSTICK) 1+ (Negative); URINE SPECIFIC GRAVITY >= 1.030 (1.005-1.035); URINE UROBILINOGEN 0.2 E.U./dl (0.2-1.0)
[2019-07-13 11:29] LABS: ABSOLUTE NEUTROPHILS 3.8 thou/uL (1.4-8.2); BASOPHILS 0.5 % (0.0-2.0); EOSINOPHILS 0.3 % (0.0-3.0); HEMOGLOBIN 14.1 gm/dL (12.0-15.0); LYMPHOCYTES 15.6 % (24.0-44.0); MCH 29.2 pg (26.0-34.0); MCHC 33.5 g/dL (28.0-37.0); MCV 87.2 fL (80.0-100.0); MONOCYTES 9.1 % (1.0-8.0); PLATELET COUNT 272 thou/uL (150-400); POLYS 74.5 % (36.0-66.0); RBC 4.81 mil/uL (4.20-5.00); RDW 16.7 % (10.5-14.5); URINE LEUKOCYTES-REFLEX 1+ (Negative); URINE NITRITE-REFLEX POSITIVE (Negative); WBC 5.1 thou/uL (4.0-11.0)
[2019-07-13 11:38] LABS: CALCIUM 10.2 mg/dL (8.5-10.1); POTASSIUM 3.8 mmol/L (3.5-5.1)
[2019-07-13 11:40] LABS: CASTS None Seen /LPF (None Seen); MUCUS >6 Heavy strn/LPF (None Seen); SQUAMOUS 0-3 Few /LPF (0-3)
[2019-07-13 11:41] LABS: URINE RBC 0-2 Rare /HPF (0-2); URINE WBC-REFLEX 6-15 Few /HPF (0-5)
[2019-07-13 11:42] LABS: BACTERIA-REFLEX 1-9 Few /HPF (None Seen); CRYSTALS None Seen /LPF (None Seen); YEAST-REFLEX Present (None Seen)
[2019-07-13 11:44] LABS: ALBUMIN 3.9 g/dL (3.4-5.0); TOTAL BILIRUBIN 0.4 mg/dL (<0.1-1.0); TOTAL PROTEIN 8.1 g/dL (6.4-8.2)
--- NOTE | 2019-07-13 12:55 | EKG ---
[facility] [place] [address] ELECTROCARDIOGRAM REPORT Name: DALE DAO Room #: [facility]#: [id number] Admission: 07/13/19 Attend Phys: Discharge: Date of : 35 Report #: [id number] THIS REPORT FOR: cc: Dawna De La O MD, Mary Ann MD Lundgren,Declan Armijo MD [facility] ~ THIS REPORT FOR: //name// [facility] ED Test Date: 2019-07-13 Test Time: 11:27:55 Pat Name: DALE DAO Department: Room: Gender: F Snowboard Instructor: navya : 1935 Requested By: Akua Chavez Order Number: [id number] MD: Declan Woo Measurements Intervals [place] Rate: 74 P: 2 AL: 274 QRS: -58 QRSD: 124 T: 4 QT: 416 QTc: 462 Interpretive Statements Sinus rhythm Prolonged AL interval Inferior infarct, old Poor R wave progression Compared to ECG 04/11/2018 10:11:14 No significant changes Electronically Signed On 07-13-2019 12:53:55 CDT by Declan Woo [email or web address] <ELECTRONICALLY SIGNED> By: Declan Woo MD, [facility] 07/13/19 1253 [id number] [id number] Declan Woo MD, [facility] /EPI
[2019-07-13 13:50] VITALS: BP 149/73
--- NOTE | 2019-07-13 13:59 | NUR ---
CONTACT FLOOR TO GIVE REPORT, FLOOR STATED THEY WERE UNSURE OF WHICH NURSE WAS TAKING THE PATIENT. THEY STATED THEY WOULD CALL BACK.
[2019-07-13 14:27] VITALS: BP 166/79
[2019-07-13 15:00] VITALS: BP 137/73
--- NOTE | 2019-07-13 16:47 | NUR ---
PT ARRIVED AT APPROX 1445 FROM ER WITH BELONGINGS. SUBRAPUBIC CATHETER WITH LEG BAG PRESENT. PT ALERT AND ORIENTED.VSS. C/O PAIN IN ABDOMEN. O2 SATS WNL ON 2-3L O2. TELE PUT ON. ADMISSION TELE STRIP PRINTED/DOCUMENTED. ADMISSION COMPLETE. ORDER FOR LUNG SCAN. REFER TO RESULTS. C/O NAUSEA ZOFRAN ADMINISTERED. PT CURRENTLY RESTING IN BED DENYING OF NEEDS AT THIS TIME. WILL CONT TO MONITOR AND FOLLOW POC.
[2019-07-13 19:48] VITALS: BP 139/74
[2019-07-14 00:52] VITALS: BP 152/72
[2019-07-14 04:29] VITALS: BP 119/55
[2019-07-14 06:21] LABS: HEMATOCRIT 37.4 % (37.0-47.0); HEMOGLOBIN 12.4 gm/dL (12.0-15.0); MCH 29.3 pg (26.0-34.0); MCHC 33.3 g/dL (28.0-37.0); MCV 87.9 fL (80.0-100.0); PLATELET COUNT 231 thou/uL (150-400); RBC 4.25 mil/uL (4.20-5.00); RDW 17.2 % (10.5-14.5); WBC 4.5 thou/uL (4.0-11.0)
[2019-07-14 06:38] LABS: CREATININE 0.9 mg/dL (0.6-1.0); MAGNESIUM 1.8 mg/dL (1.8-2.4); POTASSIUM 3.1 mmol/L (3.5-5.1)
[2019-07-14 07:11] LABS: ABSOLUTE NEUTROPHILS 2.5 thou/uL (1.4-8.2); ANISOCYTOSIS 1+; OVALOCYTES FEW
--- NOTE | 2019-07-14 09:28 | NUR ---
Assess due to high nutrition screening risk for poor intake and wt loss. Admit with recurrent UTI. Pt reports appetite down for a week or so but starting to improve. Ate 100% of breakfast this am. Able to order own meals. Has had wt loss 16 lb reporting usual wt 160 lb. Drinks Ensure on occasion but does not want at this time, aware she can order if desired. Assess as low nutrition risk and continue to follow intake trends.
--- NOTE | 2019-07-14 11:58 | NUR ---
Sp with patient via phone. She resides at home with spouse. All needs on one level. She has a walker in home if needed. 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 She can drive but not lately. Dtr assists with laundry and house keeping. Patients PCP is Dr Dawna De La O. Discussed therapy evals and possible HH. Patient does not believe she needs HH but open to receive. She has utilized [facility] in past and agreeable to utilize again at nd.
[2019-07-14 13:30] VITALS: BP 128/49
[2019-07-14 14:55] VITALS: BP 91/56
[2019-07-14 14:57] VITALS: BP 128/49
--- NOTE | 2019-07-14 14:58 | NUR ---
ASSUMED CARE OF PT AT SHIFT CHANGE. ASSESSMENTS CHARTED. MEDS GIVEN PER JUN. PT A&OX4. C/O PAIN TREATED WITH TYLENOL. PT ON 3L NC, ALTHOUGH AFTER OT PT WANTED TO KEEP IT OFF, SATTING IN MID 90S. DR. PEREZ ORDERED CDIFF CULTURE, BUT PT REPORTS NO DIARRHEA. PAGE ANA FOR CLARIFICATION. PT TRANSFERRED TO [facility]. GAVE REPORT TO YANIRA.
--- NOTE | 2019-07-14 17:01 | NUR ---
PT ARRIVED ON UNIT IN WHEELCHAIR. PT AOX4, DENIES PAIN AT THIS TIME. PT IV IN RIGHT FA DID NOT FLUSH, NEW IV PLACED IN RIGHT AC BY IV TEAM. PT HAS LEFT ARM IN A SLING D/T FX. NURSE EDUCATED PT ON HOW TO USE CALL LIGHT. FALL PRECAUTIONS IN PLACE. WILL CONTINUE TO MONITOR.
[2019-07-14 19:56] VITALS: BP 1274/67
[2019-07-15 06:01] LABS: HEMATOCRIT 34.5 % (37.0-47.0); HEMOGLOBIN 11.4 gm/dL (12.0-15.0); MCH 29.4 pg (26.0-34.0); MCHC 33.1 g/dL (28.0-37.0); MCV 88.6 fL (80.0-100.0); RBC 3.89 mil/uL (4.20-5.00); RDW 17.4 % (10.5-14.5); WBC 4.2 thou/uL (4.0-11.0)
[2019-07-15 06:09] LABS: CALCIUM 8.6 mg/dL (8.5-10.1); POTASSIUM 3.8 mmol/L (3.5-5.1)
--- NOTE | 2019-07-15 06:25 | NUR ---
Assumed pt care at 1900. Pt's A/OX4, VSS. C/o left upper arm pain medicated per EMAR and icepack provided with relief reported. Pt has an immobilizer on LUE. Suprapubic cath in place,site care completed w/yellow drainage noted around it. Continues on ABT's for UTI w/o ADR reported. No c/o SOA this shift, on RA. Fall precautions in place,calls approp for help.
[2019-07-15 08:41] VITALS: BP 116/74
--- NOTE | 2019-07-15 10:18 | NUR ---
FAXED REFERRAL TO [facility] SPOKE WITH KARI IN INTAKE SHE RECEIVED REFERRAL AND WILL REVIEW. DP TO FOLLOW.
[2019-07-15 11:23] VITALS: BP 116/74
--- NOTE | 2019-07-15 12:27 | HC ---
[facility] [place] [address] CONSULTATION Name: DALE DAO Room #: 411-P ADM IN M.R.#: [id number] Admission: 07/13/19 Attend Phys: Todd Johnson MD Discharge: Date of : 35 Report #: [id number] THIS REPORT FOR: cc: Dawna De La O MD,Dawna Clifford,Lamont Muñoz MD ~ CC: Todd De La O DATE OF SERVICE: 07/14/2019 INFECTIOUS DISEASE CONSULTATION REASON FOR CONSULTATION: I was asked to evaluate concerning urinary tract infection and diarrhea. HISTORY OF PRESENT ILLNESS: The patient was an 83-year-old history of recurrent urinary tract infections and neurogenic bladder with poor emptying. She has had recurrent urinary tract infection for quite some time. She has been in and out catheterization program for some time. Most recently had a suprapubic catheter placed several months ago. Presents now with 2-day history of nausea, vomiting, diarrhea, lower abdominal pain. She feels that this is very similar to her previous urinary tract infections. Denies any back or flank pain. She also has a history of diverticulitis. No cough or sputum production. No chest pain. She is on 2 liters of oxygen per nasal cannula. No history of DVT or pulmonary embolus. Denies any travel. She stated that her daughter was ill approximately 2 weeks ago. She had herself from the patient and her . REVIEW OF SYSTEMS: A 14-point review of system was negative other than chronic low back pain in her arthritis from rheumatoid disease and IBS. ALLERGIES: ASPIRIN, CHOCOLATE, CODEINE, HONEY, TUNA, PEPPER. MEDICATIONS: As noted on her MAR, now on cefepime. She has also been on alprazolam, loperamide, lactobacillus, Voltaren gel and Zofran. PAST MEDICAL HISTORY: Diverticulitis, peptic ulcer disease, chronic back pain, rheumatoid arthritis, depression, anxiety, right lower extremity peripheral neuropathy, tonsillectomy, hysterectomy, lumbar laminectomy, colonoscopy, IBS, hyperlipidemia, C. diff, recurrent urinary tract infection, cholecystectomy. FAMILY HISTORY: No tuberculosis. SOCIAL HISTORY: Nonsmoker. No significant alcohol intake. [facility] [address] [place] [address] CONSULTATION Name: DALE DAO Room #: 411-[facility]#: [id number] Admission: 07/13/19 Attend Phys: Todd Johnson MD Discharge: Date of : 35 Report #: [id number] PHYSICAL EXAMINATION: VITAL SIGNS: Afebrile and hemodynamically stable. GENERAL: Alert and cooperative. Left arm was in a sling from previous fracture of her humerus. SKIN: Without rash or decubitus. No palpable adenopathy. EYES: Without scleral icterus. MOUTH: Without mucositis. NECK: Supple. LUNGS: Clear to auscultation. HEART: Regular without appreciable murmur, gallop or rub. ABDOMEN: Soft, nontender. No hepatosplenomegaly or mass appreciated. GENITAL AND RECTAL: Not performed. EXTREMITIES: Without clubbing, cyanosis or edema. Mood was normal with no anxiety or depression identified. NEUROLOGIC: Cranial nerves were intact and strength was symmetric both upper and lower extremities. LABORATORY STUDIES: Reviewed. MICROBIOLOGY: Reviewed. CT scan of the abdomen and pelvis reviewed. Chest x-ray reviewed. V/Q scan reviewed. IMPRESSION: The patient presents with gastroenteritis complaints along with evidence of cystitis, which is polymicrobial including Escherichia coli and Fe. She does have underlying irritable bowel syndrome and diverticulitis history, although there was no evidence of active colitis or diverticulitis on CT scan. No evidence of pneumonia or aspiration. Does have a history of anxiety and depression, which is controlled. Her neurogenic bladder has suprapubic catheter in place. No change in her rheumatoid arthritis. RECOMMENDATIONS: We will continue antibiotic coverage, pending further culture results. We will add antifungal agent as well. She has had no other symptoms to suggest sherin virus or influenza. She will continue with current antibiotic program and reassess within the next 12-24 hours. <ELECTRONICALLY SIGNED> By: Lamont Clifford MD 07/15/19 1227 1120 1158 Lamont Clifford MD /nt
--- NOTE | 2019-07-15 16:20 | NUR ---
Assumed patient care at 0715. Vital signs have been stable. Patient has not needed Oxygen during this shift. She is alert and oriented x's 4. Patient has not had a BM today, a stool sample is still needed. Patient has requested and received Hydrocodone 5/325mg po at 0838 and 1315 for "level six" left shoulder pain. Medication was effective. Patient was also given Alprazolam 0.5mg po at these times for anxiety. Anxiety medications were effective. Saline would not flush through IV in left upper arm. IV Team called to place new one in. Suprapubic Catheter is patent; insertion site cleansed and new dressing applied. Will continue to monitor.
[2019-07-15 17:26] VITALS: BP 151/71
[2019-07-15 19:51] VITALS: BP 114/69
--- NOTE | 2019-07-16 02:42 | NUR ---
Assumed pt care at 1900. Pt is A/OX4,VSS.Up with AX1/GB to BR. C/o pain to left upper arm,medicated per EMAR and icepack offered with relief reported. Pt still trying to have a BM,medicated with Miralax PM shift with no relief yet prune juice offered but pt declined;passing flatus. Pt resting quietly at this time w/o distress noted will continue to monitor pt. Fall precautions in place.
[2019-07-16 06:08] LABS: HEMATOCRIT 34.6 % (37.0-47.0); HEMOGLOBIN 11.4 gm/dL (12.0-15.0); MCHC 32.9 g/dL (28.0-37.0); MCV 88.4 fL (80.0-100.0); RBC 3.91 mil/uL (4.20-5.00); RDW 16.9 % (10.5-14.5); WBC 3.4 thou/uL (4.0-11.0)
[2019-07-16 06:13] LABS: CALCIUM 8.7 mg/dL (8.5-10.1); CREATININE 0.9 mg/dL (0.6-1.0); POTASSIUM 3.7 mmol/L (3.5-5.1)
[2019-07-16 07:26] VITALS: BP 129/60
[2019-07-16] MEDS ORDERED: MONUROL3 GM PER TUBE (13:03)
[2019-07-16] MEDS ORDERED: FLUCONAZOLE200 MG PO (13:04)
[2019-07-16 13:40] VITALS: BP 116/74
[2019-07-16 14:41] VITALS: BP 119/65
[2019-07-16 15:10] VITALS: BP 116/74
--- NOTE | 2019-07-16 15:15 | NUR ---
FAXED REFERRAL TO [facility] SPOKE WITH JD IN INTAKE SHE RECEIVED REFERRAL AND COULD ACCEPT BUT WILL NOT BE ABLE TO SEE PT TIL SATURDAY, PT WILL NOT BE ABLE TO WAIT THAT LONG FOR VISIT. SO PT WILL DC HOME WITH [facility] FAXED DC ORDERS/[facility]MAARY SPOKE WITH KARI IN ADM SHE RECEIVED ORDERS AND WILL NOTIFY PT TIME OF VISITS FOR TOMORROW.
--- NOTE | 2019-07-16 15:16 | NUR ---
CARE TEAM INDICATED THAT PT IS MEDICALLY STABLE TO DC HOME THIS DAY WITH HOME HEALTH SERVICES. REFERRAL HAD BEEN SENT TO [facility] PT PERMISSION SHE HAD USED THEM BEFORE. THEY CAN ACCEPT PT. CM SPOKE WIHT PT'S SON AND HE INDICATED THEY WERE USING [employer] FOR PT'S SPOUSE AND ASKED IF THEY WOULD USE [employer] FOR PT TOO. REFERRAL WAS SENT THEY INNDICATED THAT SOC WOULDN'T BE UNTIL NEXT WEEK. ERIE TO SEE PT TOMORROW. PT'S SON TO PICKPT UP AT 1530. NO OTHER CM INTERVENTION INDICATED. CASE CLOSED.
[2019-07-17] MEDS ORDERED: MACROBID 100 M100 M1 PO (18:46)
== END 2019-07-16 16:32 | disposition home health service (06) | DRG 689 ==
LOC: ER 10:52 → 2N 13:03 → EROBS 13:03 → 2N 14:34 → ENTRNSPT 07-14 14:22 → EDTRNSPTSTS 07-14 14:36 → 4N 07-14 14:39
PROVIDERS: Nurse Practitioner; Nurse Practitioner Family; ADMIT Hospitalist
DX: N39.0 Urinary tract infection, site not specified (principal); J96.01 Acute respiratory failure with hypoxia; K57.90 Diverticulosis of intestine, part unspecified, without perforation or abscess without bleeding; R11.2 Nausea with vomiting, unspecified; M54.9 Dorsalgia, unspecified; G89.29 Other chronic pain; M06.9 Rheumatoid arthritis, unspecified; E78.5 Hyperlipidemia, unspecified; F32.9 Major depressive disorder, single episode, unspecified; F41.9 Anxiety disorder, unspecified; E11.40 Type 2 diabetes mellitus with diabetic neuropathy, unspecified; R19.7 Diarrhea, unspecified; K58.0 Irritable bowel syndrome with diarrhea; Z66 Do not resuscitate; E87.6 Hypokalemia; R63.4 Abnormal weight loss; G47.00 Insomnia, unspecified; I10 Essential (primary) hypertension; Z90.710 Acquired absence of both cervix and uterus; Z90.89 Acquired absence of other organs; Z87.11 Personal history of peptic ulcer disease; Z87.440 Personal history of urinary (tract) infections; Z90.49 Acquired absence of other specified parts of digestive tract; Z79.899 Other long term (current) drug therapy; Z88.5 Allergy status to narcotic agent; Z88.8 Allergy status to other drugs, medicaments and biological substances; Z91.018 Allergy to other foods; Z68.31 Body mass index [BMI] 31.0-31.9, adult
CPT/HCPCS: 10081; 10091; 10790